=== PATIENT | female | born 1980 | race Caucasian/White ===

== ENCOUNTER 2018-02-13 19:47 | Emergency (ER) | payer MEDICAID, SELFPAY ==
[2018-02-13 19:49] VITALS: BP 130/88; PULSE 72; RESP 16; TEMP 36.1; O2SAT 100; BMI 31.1
[2018-02-13 20:00] VITALS: RESP 16
[2018-02-13 21:00] LABS: Bacteria 0 SEEN /hpf (None Seen); Mucous, Urine 0 SEEN /hpf (<or=2+)
--- NOTE | 2018-02-13 21:00 | ED.DCSUM_ITS ---
- ER Visit Summary Date of Service: 02/13/18 Chief Complaint: Left flank pain and urinary frequency and urgency History of Present Illness: The patient is a 37 F no significant past medical history other than anemia. She has had 2 prior C-sections. States for about 3 days she has had some urinary urgency and frequency. No dysuria. Did notice a small amount of blood when she wiped today. Last menstrual period was 01/04. Denies any fever. No abdominal pain. No vomiting. Physical Examination: Well-appearing female. No acute distress. Vital signs are stable afebrile. H EENT exam unremarkable. Neck nontender. Lungs clear to auscultation bilaterally. Heart regular rhythm no murmur. Abdomen soft, nontender, nondistended, normal bowel sounds no peritoneal signs. Patient is moving all 4 extremities. She is neurovascularly intact. Neurologically she is awake and alert. She has mild right CVA tenderness. No ecchymosis or bruising. Neurologic exam normal. Test Results: Urinalysis shows 150 occult blood on the macro. 25-50 whites on the micro 10-25 red blood cells on the micro epithelial cells no bacteria no nitrates. A urine culture will be sent. This will be treated as a UTI. Urine is negative. Emergency Department Course and Treatment: Patient does not want or need any medications at this time. Patient started on p.o. Keflex in the ER. On repeat exam she is doing well at 2220. We went over her urinalysis test results. Treatment Plan: Keflex 500 4 times daily for 10 days. Reason 1 treat the patient for this length of time is due to her flank pain that this could be early pyelonephritis. Disposition: Discharge Impression: Acute right flank pain secondary to acute pyelonephritis This note was generated with [employer] software. It may contain incorrect words, spelling, and punctuation that were not noted in review of the chart prior to signing ED Disposition - Plan for ED Patient: Chief Complaint: Flank Pain Referrals: Edgar Lawton MD [Primary Care Provider] -
[2018-02-13 21:05] LABS: Internal QC Validated? YES +Cl - CLEAR BKGD; Pregnancy, Urine Negative Negative
[2018-02-13 21:13] LABS: Color, Urine Yellow (Yellow); Glucose, Dipstick Normal (Normal); Ketone-Dipstick Negative (Negative); Leukocyte Esterase-Dipstick 100 /ul (Negative); Nitrite-Dipstick Negative (Negative); Occult Blood-Urine 150 /ul (Negative); Protein-Dipstick 15 mg/dl (Negative); Specific Gravity, Urine 1.015 (1.002-1.030); Urine Bilirubin Dipstick Negative (Negative); Urine Clarity Sl. Cloudy (Clear); Urine Urobilinogen Normal (Normal)
[2018-02-13 21:16] LABS: White Blood Cells 25-50 SEEN /hpf (0-5)
[2018-02-13 21:17] LABS: Red Blood Cells-Urine 10-25 SEEN /hpf (0-5); Squamous Epithelial Cells - UA 0-5 SEEN /hpf (5-10)
--- NOTE | 2018-02-13 22:34 | ED.DEP ---
ED Disposition - Plan for ED Patient: Disposition: Home or Assisted Living Chief Complaint: Flank Pain Instructions: ED Kidney Infec Female Prescriptions: Cephalexin [Keflex] 500 mg PO Q6 #40 cap Referrals: Edgar Lawton MD [Primary Care Provider] - Additional Instructions: Plenty of fluids and rest. Tylenol and/or Motrin for pain. Keflex the antibiotic 1 pill 4 times a day until gone. All up with your doctor as needed. Return if feeling a lot worse.
[2018-02-13] MEDS: Cephalexin 250 MG Capsule 500 MG PO (22:37)
[2018-02-13 22:39] VITALS: BP 116/85; PULSE 80; RESP 16; O2SAT 99
--- OUTSIDE RECORDS SUMMARY | 2018-04-11 10:14 | XMS RPT_ITS ---
:1980 Author Organization OHIP Care Team Providers Name Role Phone EAN LEÓN Attending Unavailable EAN LEÓN Referring Unavailable EAN LEÓN Attending Unavailable EAN LEÓN Referring Unavailable NETTE WARNER ([facility]) Referring Unavailable EAN LEÓN Attending Unavailable EAN LEÓN Referring Unavailable Nikkie Irwin Attending Unavailable Lisha Chapa Primary Care Unavailable Nikkie Irwin Attending Unavailable Lisha Chapa Primary Care Unavailable Nikkie Irwin Attending Unavailable Lisha Chapa Primary Care Unavailable Ortiz Burkett Attending Unavailable Ean León Primary Care Unavailable PROBLEMS PROBLEMS DATE TYPE CONDITION / CODE ATTENDING STATUS SOURCE 07/10/2017 Active Iron deficiency NA Active [facility] anemia, Main [place] unspecified / Repository D50.9(ICD-10) 06/09/2017 Active Other fatigue / NA Active [facility] R53.83(ICD-10) Main [place] Repository 06/09/2017 Active Anemia, NA Active [facility] unspecified / Main [place] D64.9(ICD-10) Repository PROCEDURES PROCEDURES No Procedure Records FoundRESULTS RESULTS DISCHARGE INSTRUCTION Observed: 02/13/2018 Status: F Source: [place] 11:04 PM [facility] REPOSITORY [facility] Medical Records Department [address] [place] [address] Discharge Instruction 02/13/18 2234 MR#: [id number] Acct: [id number] Name: NATASHA BLAKE Rep #: [id number] : 1980 37 From: Ortiz Burkett MD PCP: Ean León MD Status: DEP ER ED Disposition - Plan for ED Patient: Disposition: Home or Assisted Living Chief Complaint: Flank Pain Instructions: ED Kidney Infec Female Prescriptions: Cephalexin [Keflex] 500 mg PO Q6 #40 cap Referrals: Ean León MD [Primary Care Provider] - Additional Instructions: Plenty of fluids and rest. Tylenol and/or Motrin for pain. Keflex the antibiotic 1 pill 4 times a day until gone. All up with your doctor as needed. Return if feeling a lot worse. What to do if you have Problems For any increased pain, shortness of breath, bleeding, nausea or vomiting, chest pain, or any unexpected problems, contact your Primary Care Provider. Call [facility] ([phone]) or report to the closest Emergency Room. Call 911 if necessary. 02/13/18 2304 <Electronically signed by Ortiz Burkett MD> Date Ortiz Burkett MD Cosigner Signature (If Indicated): Date CC: Ean León MD EMERGENCY DEPARTMENT Observed: 02/13/2018 Status: F Source: [place] SUMMARY 11:04 PM [facility] REPOSITORY [facility] Medical Records Department [address] [place] [id number] Emergency Department Summary 02/13/182057 MR#: [id number] Acct: [id number] Name: NATASHA BLAKE Rep #: [id number] : 1980 37 From: Ortiz Burkett MD PCP: Ean León MD Status: DEP ER - ER Visit Summary Date of Service: 02/13/18 Chief Complaint: Left flank pain and urinary frequency and urgency History of Present Illness: The patient is a 37 F no significant past medical history other than anemia. She has had 2 prior C-sections. States for about 3 days she has had some urinary urgency and frequency. No dysuria. Did notice a small amount of blood when she wiped today. Last menstrual period was 01/04. Denies any fever. No abdominal pain. No vomiting. Physical Examination: Well-appearing female. No acute distress. Vital signs are stable afebrile. H EENT exam unremarkable. Neck nontender. Lungs clear to auscultation bilaterally. Heart regular rhythm no murmur. Abdomen soft, nontender, nondistended, normal bowel sounds no peritoneal signs. Patient is moving all 4 extremities. She is neurovascularly intact. Neurologically she is awake and alert. She has mild right CVA tenderness. No ecchymosis or bruising. Neurologic exam normal. Test Results: Urinalysis shows 150 occult blood on the macro. 25-50 whites on the micro 10-25 red blood cells on the micro epithelial cells no bacteria no nitrates. A urine culture will be sent. This will be treated as a UTI. Urine is negative. Emergency Department Course and Treatment: Patient does not want or need any medications at this time. Patient started on p.o. Keflex in the ER. On repeat exam she is doing well at 2220. We went over her urinalysis test results. Treatment Plan: Keflex 500 4 times daily for 10 days. Reason 1 treat the patient for this length of time is due to her flank pain that this could be early pyelonephritis. Disposition: Discharge Impression: Acute right flank pain secondary to acute pyelonephritis This note was generated with [employer] dictation software. It may contain incorrect words, spelling, and punctuation that were not noted in review of the chart prior to signing ED Disposition - Plan for ED Patient: Chief Complaint: Flank Pain Referrals: Ean León MD [Primary Care Provider] - What to do if you have Problems For any increased pain, shortness of breath, bleeding, nausea or vomiting, chest pain, or any unexpected problems, contact your Primary Care Provider. Call [employer] [facility] ([phone]) or report to the closest Emergency Room. Call 911 if necessary. 02/13/18 2037 <Electronically signed by Ortiz Burkett MD> Date Ortiz Burkett MD Cosigner Signature (If Indicated): Date CC: Ean eLón MD ,URINE Collected: 02/13/2018 Status: F Source: [place] 8:30 PM [facility] REPOSITORY Order Comment: Order Date: 02/13/18 TYPE CODE TESTS RESULT OUT OF REFERENCE UNITS RANGE LAB L400.8000 Negative Normal HCGUQUAL Negative Result Comment: Very dilute urine specimens, as indicated by a low specific gravity, may not contain representative phlebotomy services levels of hCG. If is still suspected, a first morning urine specimen should be collected 48 hours later and tested. Performed By: #### L400.7600 #### [facility] [place], [address] URINALYSIS, COMPLETE Collected: 02/13/2018 Status: F Source: [place] 8:30 PM [facility] REPOSITORY Order Comment: Order Date: 02/13/18 How was Urine Obtained? IMCU NURSE TO SPECIFY TYPE CODE TESTS RESULT OUT OF RANGE REFERENCE UNITS LAB L400.3000 Yellow COLOR Normal Yellow LAB L400.3050 Clear Normal CLARITY Sl. Cloudy LAB L400.3200 Normal mg/dl Normal GLUCOSE, UR Normal LAB L400.3300 Negative mg/dL Normal BILIRUBIN URINE Negative LAB L400.3400 Negative mg/dl Normal KETONE UR Negative LAB L400.3465 1.002-1.030 Normal SP.GR. DIPSTX 1.015 LAB L400.3550 5.0 - 8.0 pH UR Normal 7.0 LAB L400.3600 Negative mg/dl High PROT 15 DIPSTX LAB L400.3700 Normal mg/dl Normal UROBILI Normal LAB L400.3750 Negative Normal NITRITE UR Negative LAB L400.3780 Negative /ul High OCCULT BLOOD-UR 150 LAB L400.3800 Negative /ul High LEUK ESTERASE 100 LAB L400.4050 0-5 /hpf WBC Normal 25-50 SEEN LAB L400.4100 0-5 /hpf Normal RBC-UA 10-25 SEEN LAB L400.4150 5-10 /hpf SQUAM Normal EPI 0-5 SEEN LAB L400.4300 None Seen /hpf 0 Normal BACTERIA SEEN LAB L400.4350 <or=2+ /hpf 0 Normal MUCUS, URINE SEEN Performed By: #### L400.0001 #### [facility] [address] [place], [address] Observed: 02/13/2018 Status: F Source: [place] CULTURE, URINE 8:30 PM [facility] REPOSITORY Order Date: 02/13/18 Urine Culture Below infection level. Clinical correlation necessary, Possible skin contamination. ORGANISM 1: Streptococcus agalactiae (B) Shelby Count 1000-10,000 ORGANISM 2: Mixed Gram Positive Organisms Shelby Count 1000-10,000 Streptococcus agalactiae (B): REACTION Ampicillin $ <=0.25 S Inducable Clindamycin Resistan - Linezolid $$$$ <=2 S Vancomycin $ 0.5 S (NF) indicates non-formulary drug at [facility]. Approval by Infectious Disease Specialist required before non-formulary drugs may be ordered and/or dispensed. * CLSI guidelines does not recommend testing of cephalosporins. This interpretation is deduced from Beta-lactam/penicillin results. Performed By: #### M100.0650 #### [facility] [address] [place], [place], [address] CNCO Observed: 01/05/2018 Status: COMPLETED Source: [place] 12:00 AM [facility] REPOSITORY Letter Text [address] [place], [place] [address] January 05, 2018 Natasha Blake [address] [facility] [id number] RE: MISSED APPOINTMENT with Dr. León on Monday01/05/18 I am concerned that you missed your recent appointment and my office was not notified of the appointment being rescheduled. We request that you cancel 24 hours in advance.If cancellation is necessary after that,please call as soon as possible. As you know follow-up appointments are important so please call our Appointments Office at [phone] to reschedule. If there is anything we can do to assist you, please let us know. Sincerely, Dr. León's office CBC AND DIFFERENTIAL Collected: 10/06/2017 Status: F Source: [place] 3:35 PM [facility] REPOSITORY TYPE CODE TESTS RESULT OUT OF REFERENCE UNITS RANGE LAB WBC 3.70-11.00 k/uL WBC 5.18 LAB RBC 3.90-5.20 m/uL RBC 4.53 LAB HGB 11.5-15.5 g/dL Low Hemoglobin 10.5 LAB HCT 36.0-46.0 % Low Hematocrit 35.0 LAB MCV 80.0-100.0 fL Low MCV 77.3 LAB MCH 26.0-34.0 pG Low MCH 23.2 LAB MCHC 30.5-36.0 g/dL Low MCHC 30.0 LAB RDWCV 11.5-15.0 % RDW-CV High 17.8 LAB PLTCT 150-400 k/uL Platelet Count 361 LAB MPV 9.0-12.7 fL MPV 9.9 LAB ANEUT % Neut% 54.4 LAB AANEUT 1.45-7.50 k/uL Abs Neut 2.80 LAB ALYMP % Lymph% 31.3 LAB AALYMP 1.00-4.00 k/uL Abs Lymph 1.62 LAB AMONO % Finney% 10.6 LAB AAMONO <0.87 k/uL Abs Finney 0.55 LAB AEOS % Eosin% 2.9 LAB AAEOS <0.46 k/uL Abs Eosin 0.15 LAB ABASO % Baso% 0.8 LAB AABASO <0.11 k/uL Abs Baso 0.04 LAB AUNRBC 0 /100 WBC NRBCs 0.0 LAB ABNRBC <0.01 k/uL Absolute nRBC <0.01 LAB DTYP DTYPE Auto Diff Performed By: #### CBCDIF, IRON, FERR #### [facility] [address] [place], [place] [address] IRON AND TIBC Collected: 10/06/2017 Status: F Source: [place] 3:35 PM [facility] REPOSITORY TYPE CODE TESTS RESULT OUT OF REFERENCE UNITS RANGE LAB IRN 41-186 ug/dL Low Iron 15 LAB TIBC 232-386 ug/dL TIBC High 431 LAB SAT 15-57 % Low Transferrin Saturatn 3 Performed By: #### CBCDIF, IRON, FERR #### [facility] [address] [place] [address] FERRITIN Collected: 10/06/2017 Status: F Source: [place] 3:35 PM [facility] [place] REPOSITORY TYPE CODE TESTS RESULT OUT OF REFERENCE UNITS RANGE LAB FERR 14.7-205.1 ng/mL Low Ferritin 14.0 Performed By: #### CBCDIF, IRON, FERR #### [facility] [address] [place], [place] [address] PROGRESS Observed: 10/06/2017 Status: COMPLETED Source: [place] 3:07 PM [facility] [place] REPOSITORY HNO ID: [id number] Author: Ean León Service: (none) Author Type: Physician Type: Progress Notes Filed: 10/06/2017 3:29 PM Note Text: Chief Complaint Patient presents with: Recheck HPI Natasha Blake is a 37 year old female who presents here today for a follow up. Here today with her daughter for a follow up visit. Depression/Anxiety - Overall feels that she is doing better and has d/c her medication. Did have a panic attack in the store due to some weird siobhan getting to close to her and she freaked out on him. She had her daughter with her and hugged which made her feel better. Depression she seems to get a little weepy during her period, but with her daughter and hugging her she does better. D/c Zoloft due to becoming worried about SE and hearing friends have bad reactions to it. VILLA - States that they are not lasting as long, but now having migraines that she is experiencing N/V with. Using Advil 1-2 tablets and goes to sleep. With the use of Advil symptoms usually go away in about 1.5 hours. Leg pain - Left leg pain the last two weeks. Stands 10 hours a day, 4 days a week at work. Pain shoots up her leg and behind her knee. Pain rated a 4/10 and is intermittent. Anemia - Has not taken due to having issues with her current medication. When she previously took her Ferrous Sulfate twice daily, but recent refill the pills are bigger and it causes VILLA, constipation and possible leg pain (unsure if the medication contributes). Past medical history, appointments, medications, allergies reviewed. Previous Medical History PAST MEDICAL HISTORY Diagnosis Date - VILLA (headache) Previous Surgical History No past surgical history on file. Family History No family history on file. Patient Allergies ALLERGIES Allergen Reactions - Seasonal Allergies Other: See Comments Itchy, watery eyes, sneezing Current Medications Current Outpatient Prescriptions on File Prior to Visit: ferrous sulfate 325 mg (65 mg iron) tablet Take 1 tablet by mouth twice daily with meals. albuterol HFA (VENTOLIN HFA) 90 mcg/actuation inhaler Inhale 2 Puffs as instructed every 4 hours as needed for Wheezing/Shortness of Breath. No current facility-administered medications on file prior to visit. Social History Social History Marital status: Single Spouse name: Years of education: Number of children: Social History Main Topics Smoking status: Never Smoker Smokeless tobacco: Never Used EXAM: BP 106/74 (BP Site: Left Arm, BP Position: Sitting, BP Cuff Size: Regular Adult) Pulse 68 Resp 16 Wt 87.5 kg (192 lb 12.8 oz) General Appearance: Well appearing, alert, in no acute distress, well-hydrated, well nourished.. Neck: Pain in the back of the neck. Lungs: Lungs clear to auscultation. No wheezing, rhonchi, rales. Heart: RRR without murmur, gallop, or rubs. No ectopy. Extremities: Pain along the bilateral side of the knee, bilaterally. Possibly tendon related becoming irritated. Health Maintenance List DTAP,TDAP,TD(1 - Tdap) due on 1997 PAP EVERY 5 YEARS due on 2008 HPV EVERY 5 YEARS due on 2008 INFLUENZA(1) due on 11/18/2017 Data reviewed None ASSESSMENT/PLAN: 1. Iron deficiency anemia, unspecified iron deficiency anemia type - ICD9: 280.9, ICD10: D50.9 (primary diagnosis) - complete labs today - FERROUS SULFATE 325 MG (65 MG IRON) TABLET,DELAYED RELEASE 2. Menorrhagia with regular cycle - ICD9: 626.2, ICD10: N92.0 - labs today 3. Headache, unspecified headache type - ICD9: 784.0, ICD10: R51 - Monitor, use Advil 4. Left leg pain - ICD9: 729.5, ICD10: M79.605 - Warm compresses, stretching Call with lab results; 3 mo f/u Ean León MD The documentation for this note was completed by Sonia Maria Ma acting as scribe for Ean León MD. October 06, 2017 3:07 PM. CNOV Observed: 10/06/2017 Status: COMPLETED Source: [place] 3:00 PM [facility] REPOSITORY Office Visit (FAMPWS) NATASHA BLAKE ([id number]) 1980 F Date Time Provider Department 10/06/17 3:00 PM [facility] During your visit today, we recorded the following information about you: Pulse Respiration Blood pressure Weight 68/minute 16/minute 106/74 87.5 kg Ean León MD 10/06/2017 3:29 PM Signed Chief Complaint Patient presents with: Recheck HPI Natasha Idania Hayden is a 37 year old female who presents here today for a follow up. Here today with her daughter for a follow up visit. Depression/Anxiety - Overall feels that she is doing better and has d/c her medication. Did have a panic attack in the store due to some weird siobhan getting to close to her and she freaked out on him. She had her daughter with her and hugged which made her feel better. Depression she seems to get a little weepy during her period, but with her daughter and hugging her she does better. D/c Zoloft due to becoming worried about SE and hearing friends have bad reactions to it. VILLA - States that they are not lasting as long, but now having migraines that she is experiencing N/V with. Using Advil 1-2 tablets and goes to sleep. With the use of Advil symptoms usually go away in about 1.5 hours. Leg pain - Left leg pain the last two weeks. Stands 10 hours a day, 4 days a week at work. Pain shoots up her leg and behind her knee. Pain rated a 4/10 and is intermittent. Anemia - Has not taken due to having issues with her current medication. When she previously took her Ferrous Sulfate twice daily, but recent refill the pills are bigger and it causes VILLA, constipation and possible leg pain (unsure if the medication contributes). Past medical history, appointments, medications, allergies reviewed. Previous Medical History PAST MEDICAL HISTORY Diagnosis Date - VILLA (headache) Previous Surgical History No past surgical history on file. Family History No family history on file. Patient Allergies ALLERGIES Allergen Reactions - Seasonal Allergies Other: See Comments Itchy, watery eyes, sneezing Current Medications Current Outpatient Prescriptions on File Prior to Visit: ferrous sulfate 325 mg (65 mg iron) tablet Take 1 tablet by mouth twice daily with meals. albuterol HFA (VENTOLIN HFA) 90 mcg/actuation inhaler Inhale 2 Puffs as instructed every 4 hours as needed for Wheezing/Shortness of Breath. No current facility-administered medications on file prior to visit. Social History Social History Marital status: Single Spouse name: Years of education: Number of children: Social History Main Topics Smoking status: Never Smoker Smokeless tobacco: Never Used EXAM: BP 106/74 (BP Site: Left Arm, BP Position: Sitting, BP Cuff Size: Regular Adult) Pulse 68 Resp 16 Wt 87.5 kg (192 lb 12.8 oz) General Appearance: Well appearing, alert, in no acute distress, well-hydrated, well nourished.. Neck: Pain in the back of the neck. Lungs: Lungs clear to auscultation. No wheezing, rhonchi, rales. Heart: RRR without murmur, gallop, or rubs. No ectopy. Extremities: Pain along the bilateral side of the knee, bilaterally. Possibly tendon related becoming irritated. Health Maintenance List DTAP,TDAP,TD(1 - Tdap) due on 1997 PAP EVERY 5 YEARS due on 2008 HPV EVERY 5 YEARS due on 2008 INFLUENZA(1) due on 11/18/2017 Data reviewed None ASSESSMENT/PLAN: 1. Iron deficiency anemia, unspecified iron deficiency anemia type - ICD9: 280.9, ICD10: D50.9 (primary diagnosis) - complete labs today - FERROUS SULFATE 325 MG (65 MG IRON) TABLET,DELAYED RELEASE 2. Menorrhagia with regular cycle - ICD9: 626.2, ICD10: N92.0 - labs today 3. Headache, unspecified headache type - ICD9: 784.0, ICD10: R51 - Monitor, use Advil 4. Left leg pain - ICD9: 729.5, ICD10: M79.605 - Warm compresses, stretching Call with lab results; 3 mo f/u Ean León MD The documentation for this note was completed by Sonia Maria Ma acting as scribe for Ean León MD. October 06, 2017 3:07 PM. Referring Provider: SELF [[id number]] Allergies As of Date: 10/06/2017 Noted Allergy Reaction SEASONAL ALLERGIES 06/09/2017 14 - Other: See Comments Comments: Itchy, watery eyes, sneezing Date Reviewed: 10/06/2017 Reviewed by: Sonia Maria Ma - Fully Assessed Reason for Visit: Recheck [92] Primary Visit Diagnosis:Iron deficiency anemia, unspecified iron deficiency anemia type [D50.9] Other Visit Diagnoses:Menorrhagia with regular cycle [N92.0] Headache, unspecified headache type [R51] Left leg pain [M79.605] Order(s):ferrous sulfate 325 mg (65 mg iron) EC tabletTake 1 tablet by mouth twice daily.Disp: 60 tabletRfl: 2 CBC + DIFF [SQCBCDIF] Order #: [id number] FUTURE IRON + TIBC [SQIRON] Order #: [id number] FUTURE FERRITIN BLD [SQFERR] Order #: [id number] FUTURE Prescriptions as of 10/06/2017 Sig: CETIRIZINE 10 MG TABLET Take 1 tablet by mouth once d* FERROUS SULFATE 325 MG (65 MG* Take 1 tablet by mouth twice * ALBUTEROL SULFATE HFA 90 MCG/* Inhale 2 Puffs as instructed * FERROUS SULFATE 325 MG (65 MG* Take 1 tablet by mouth twice * Problem List As Of Date: 10/06/2017 (None) Prescriptions ordered this encounter Disp Refills Start End FERROUS SULFATE 325 MG (65 MG IRON) * 60 t* 2 10/06/2017 Cmt: Brand name - smaller tablets. Route: ORAL Sig: Take 1 tablet by mouth twice daily. Medications Discontinued During This Encounter sertraline (ZOLOFT) 25 mg tablet 30 t* 2 07/10/2017 10/06/2017 Route: ORAL Sig: Take 1 tablet by mouth once daily. Disc: Discontinued by Patient cefdinir (OMNICEF) 300 mg capsule 06/29/2017 10/06/2017 Class: Historical Med Route: ORAL Sig: Take 300 mg by mouth once daily. Disc: Course of therapy completed Disposition: Return in about 3 months (around 01/06/2018). Follow-up and Disposition History Recorded Encounter Status:Closed by EAN LEÓN MD on 10/06/17 CBC AND DIFFERENTIAL Collected: 07/10/2017 Status: F Source: [place] 3:13 PM [facility] [place] REPOSITORY TYPE CODE TESTS RESULT OUT OF REFERENCE UNITS RANGE LAB WBC 3.70-11.00 k/uL WBC 5.95 LAB RBC 3.90-5.20 m/uL RBC 4.62 LAB HGB 11.5-15.5 g/dL Low Hemoglobin 8.7 LAB HCT 36.0-46.0 % Low Hematocrit 31.0 LAB MCV 80.0-100.0 fL Low MCV 67.1 LAB MCH 26.0-34.0 pG Low MCH 18.8 LAB MCHC 30.5-36.0 g/dL Low MCHC 28.1 LAB RDWCV 11.5-15.0 % RDW-CV High 18.6 LAB PLTCT 150-400 k/uL Platelet High Count 489 LAB MPV 9.0-12.7 fL MPV 10.4 LAB ANEUT % Neut% 57.1 LAB AANEUT 1.45-7.50 k/uL Abs Neut 3.39 LAB ALYMP % Lymph% 28.9 LAB AALYMP 1.00-4.00 k/uL Abs Lymph 1.72 LAB AMONO % Finney% 10.3 LAB AAMONO <0.87 k/uL Abs Finney 0.61 LAB AEOS % Eosin% 3.0 LAB AAEOS <0.46 k/uL Abs Eosin 0.18 LAB ABASO % Baso% 0.7 LAB AABASO <0.11 k/uL Abs Baso 0.04 LAB AUNRBC 0 /100 WBC NRBCs 0.0 LAB ABNRBC <0.01 k/uL Absolute nRBC <0.01 LAB DTYP DTYPE Auto Diff Performed By: #### CBCDIF, IRON, FERR #### [facility] [address] [place], [place] [id number] IRON AND TIBC Collected: 07/10/2017 Status: F Source: [place] 3:13 PM [facility] REPOSITORY TYPE CODE TESTS RESULT OUT OF REFERENCE UNITS RANGE LAB IRN 41-186 ug/dL Low Iron 21 LAB TIBC 232-386 ug/dL TIBC High 446 LAB SAT 15-57 % Low Transferrin Saturatn 5 Performed By: #### CBCDIF, IRON, FERR #### [facility] [address] [place], [place] [address] FERRITIN Collected: 07/10/2017 Status: F Source: [place] 3:13 PM [facility] REPOSITORY TYPE CODE TESTS RESULT OUT OF REFERENCE UNITS RANGE LAB FERR 14.7-205.1 ng/mL Low Ferritin 7.8 Performed By: #### CBCDIF, IRON, FERR #### [facility] [address] [place], [place] [address] CNOV Observed: 07/10/2017 Status: COMPLETED Source: [place] 2:40 PM [facility] REPOSITORY Office Visit (FAMPWS) NATASHA BLAKE ([id number]) 1980 F Date Time Provider Department 07/10/17 2:40 PM EAN LEÓN FAMPWS During your visit today, we recorded the following information about you: Pulse Respiration Blood pressure Weight 74/minute 16/minute 122/70 90.9 kg Ean León MD 07/10/2017 5:08 PM Signed Chief Complaint Patient presents with: F/U 1 month: labs and CT HPI Natasha Blake is a 37 year old female who presents here today for 1 month follow up on labs and CT scan. CT of brain was denied by insurance. Appeal letter was faxed, awaiting response. Pt states she is still having the sharp pain that go form neck into the head, dizziness. notices the dizziness more when active, happens a lot a work and she has to sit down so she does not fall over. The dizziness does cause some nausea. Pt had blood work done; hgb was 8.7. Started on iron pills, but dropped them on the floor so has not taken for a while. She stated her menstrual cycles are heaviest on 2nd and 3rd day, this most recent cycle lasted 9 days. Was seen for sinus infection at walk in clinic, was treated on 06/29/17 with Omnicef 300 mg once daily. She finished this yesterday, feels a little better. She still seems to be getting headaches. Pt has not used the Pippa D that was recommended, pharmacies did not have generic available, insurance will not pay for name brand. Toe: left great toe pain off and on, usually a sharp pain while walking. Past medical history, appointments, medications, allergies reviewed. Previous Medical History No past medical history on file. Previous Surgical History No past surgical history on file. Family History No family history on file. Patient Allergies ALLERGIES Allergen Reactions - Seasonal Allergies Other: See Comments Itchy, watery eyes, sneezing Current Medications Current Outpatient Prescriptions on File Prior to Visit: ferrous sulfate 325 mg (65 mg iron) tablet Take 1 tablet by mouth twice daily with meals. albuterol HFA (VENTOLIN HFA) 90 mcg/actuation inhaler Inhale 2 Puffs as instructed every 4 hours as needed for Wheezing/Shortness of Breath. No current facility-administered medications on file prior to visit. Social History Social History Marital status: Single Spouse name: Years of education: Number of children: Social History Main Topics Smoking status: Never Smoker Smokeless status: Never Used EXAM: BP 122/70 Pulse 74 Resp 16 Wt 90.9 kg (200 lb 6.4 oz) General Appearance: Well appearing, alert, in no acute distress, well-hydrated, well nourished.. Ears: External ears normal, canals clear. Oropharynx: Lips, mucosa, and tongue normal, teeth and gums normal, oropharynx normal. Neck: Supple, no adenopathy; thyroid symmetric, normal size, no bruits. Lungs: Lungs clear to auscultation. No wheezing, rhonchi, rales. Heart: RRR without murmur, gallop, or rubs. No ectopy. Health Maintenance List TETANUS due on 1989 PAP EVERY 5 YEARS due on 2008 HPV EVERY 5 YEARS due on 2008 INFLUENZA(Season Ended) due on 11/18/2017 Data reviewed Appointment on 06/09/2017 Protein, Total Value: 7.2(g/dL) Date: 06/09/2017 Albumin Value: 4.3(g/dL) Date: 06/09/2017 Calcium Value: 10.0(mg/dL) Date: 06/09/2017 Bilirubin, Total Value: 0.2(mg/dL) Date: 06/09/2017 Alkaline Phosphatase Value: 69(U/L) Date: 06/09/2017 AST Value: 22(U/L) Date: 06/09/2017 Glucose Value: 92(mg/dL) Date: 06/09/2017 BUN Value: 8(mg/dL) Date: 06/09/2017 Creatinine Value: 0.80(mg/dL) Date: 06/09/2017 Sodium Value: 137(mmol/L) Date: 06/09/2017 Potassium Value: 4.0(mmol/L) Date: 06/09/2017 Chloride Value: 102(mmol/L) Date: 06/09/2017 CO2 Value: 25(mmol/L) Date: 06/09/2017 Anion Gap Value: 10(mmol/L) Date: 06/09/2017 ALT Value: 11(U/L) Date: 06/09/2017 eGFR- Value: ANDgt;60 Date: 06/09/2017 eGFR-All Other Races Value: ANDgt;60(.) Date: 06/09/2017 TSH Value: 2.100(uU/mL) Date: 06/09/2017 WBC Value: 4.14(k/uL) Date: 06/09/2017 RBC Value: 4.67(m/uL) Date: 06/09/2017 Hemoglobin Value: 8.7(g/dL)* Date: 06/09/2017 Hematocrit Value: 31.1(%)* Date: 06/09/2017 MCV Value: 66.6(fL)* Date: 06/09/2017 MCH Value: 18.6(pG)* Date: 06/09/2017 MCHC Value: 28.0(g/dL)* Date: 06/09/2017 RDW-CV Value: 18.4(%)* Date: 06/09/2017 Platelet Count Value: 475(k/uL)* Date: 06/09/2017 MPV Value: 10.8(fL) Date: 06/09/2017 Absolute nRBC Value: ANDlt;0.01(k/uL) Date: 06/09/2017 Iron Value: 13(ug/dL)* Date: 06/09/2017 TIBC Value: 472(ug/dL)* Date: 06/09/2017 Transferrin Saturation Value: 3(%)* Date: 06/09/2017 ASSESSMENT/PLAN: 1. Iron deficiency anemia, unspecified iron deficiency anemia type - ICD9: 280.9, ICD10: D50.9 (primary diagnosis) Go back on iron; check labs today - FERROUS SULFATE 325 MG (65 MG IRON) TABLET 2. Depression, unspecified depression type - ICD9: 311, ICD10: F32.9 Start zoloft 25 mg daily - reports she is sensitive to medication 3. Acute sinusitis, recurrence not specified, unspecified location - ICD9: 461.9, ICD10: J01.90 [place] 4. Headache, unspecified headache type - ICD9: 784.0, ICD10: R51 Await determination of CT Follow up in 1 month Ean León MD Referring Provider: EAN LEÓN [[id number]] Allergies As of Date: 07/10/2017 Noted Allergy Reaction SEASONAL ALLERGIES 06/09/2017 14 - Other: See Comments Comments: Itchy, watery eyes, sneezing Date Reviewed: 07/10/2017 Reviewed by: Linda Jin Ma - Fully Assessed Reason for Visit: F/U 1 month [7695] Cmt: labs and CT Primary Visit Diagnosis:Iron deficiency anemia, unspecified iron deficiency anemia type [D50.9] Other Visit Diagnoses:Depression, unspecified depression type [F32.9] Acute sinusitis, recurrence not specified, unspecified location [J01.90] Headache, unspecified headache type [R51] Order(s):ferrous sulfate 325 mg (65 mg iron) tabletTake 1 tablet by mouth twice daily with meals.Disp: 60 tabletRfl: 1 sertraline (ZOLOFT) 25 mg tabletTake 1 tablet by mouth once daily.Disp: 30 tabletRfl: 2 azithromycin (ZITHROMAX Z-AMILCAR) 250 mg tabletTake 2 tablets day one, then, 1 tablet daily until gone.Disp: 1 PackageRfl: 0 Prescriptions as of 07/10/2017 Sig: CEFDINIR 300 MG CAPSULE Take 300 mg by mouth once shelly* FERROUS SULFATE 325 MG (65 MG* Take 1 tablet by mouth twice * ALBUTEROL SULFATE HFA 90 MCG/* Inhale 2 Puffs as instructed * SERTRALINE 25 MG TABLET Take 1 tablet by mouth once d* AZITHROMYCIN 250 MG TABLET Take 2 tablets day one, then,* Medication notes this encounter CEFDINIR 300 MG CAPSULE >> Linda Jin Ma 07/10/2017 2:24 PM >> LINDA JIN MA Jul 10, 2017 2:24 PM Received from: External Pharmacy Problem List As Of Date: 07/10/2017 (None) Prescriptions ordered this encounter Disp Refills Start End FERROUS SULFATE 325 MG (65 MG IRON) * 60 t* 1 07/10/2017 Route: ORAL Sig: Take 1 tablet by mouth twice daily with meals. SERTRALINE 25 MG TABLET 30 t* 2 07/10/2017 10/08/2017 Route: ORAL Sig: Take 1 tablet by mouth once daily. AZITHROMYCIN 250 MG TABLET 1 Pa* 0 07/10/2017 07/15/2017 Sig: Take 2 tablets day one, then, 1 tablet daily until gone. Medications Discontinued During This Encounter ferrous sulfate 325 mg (65 mg iron) * 60 t* 1 06/12/2017 07/10/2017 Route: ORAL Sig: Take 1 tablet by mouth twice daily with meals. Disc: Reason for discontinue is not on file. Disposition: Return in about 1 month (around 08/09/2017). Follow-up and Disposition History Recorded Encounter Status:Closed by EAN LEÓN MD on 07/10/17 PROGRESS Observed: 07/10/2017 Status: COMPLETED Source: [place] 2:20 PM [facility] [place] REPOSITORY O ID: [id number] Author: Ean León Service: (none) Author Type: Physician Type: Progress Notes Filed: 07/10/2017 5:08 PM Note Text: Chief Complaint Patient presents with: F/U 1 month: labs and CT HPI Natasha Blake is a 37 year old female who presents here today for 1 month follow up on labs and CT scan. CT of brain was denied by insurance. Appeal letter was faxed, awaiting response. Pt states she is still having the sharp pain that go form neck into the head, dizziness. notices the dizziness more when active, happens a lot a work and she has to sit down so she does not fall over. The dizziness does cause some nausea. Pt had blood work done; hgb was 8.7. Started on iron pills, but dropped them on the floor so has not taken for a while. She stated her menstrual cycles are heaviest on 2nd and 3rd day, this most recent cycle lasted 9 days. Was seen for sinus infection at walk in clinic, was treated on 06/29/17 with Omnicef 300 mg once daily. She finished this yesterday, feels a little better. She still seems to be getting headaches. Pt has not used the Pippa D that was recommended, pharmacies did not have generic available, insurance will not pay for name brand. Toe: left great toe pain off and on, usually a sharp pain while walking. Past medical history, appointments, medications, allergies reviewed. Previous Medical History No past medical history on file. Previous Surgical History No past surgical history on file. Family History No family history on file. Patient Allergies ALLERGIES Allergen Reactions - Seasonal Allergies Other: See Comments Itchy, watery eyes, sneezing Current Medications Current Outpatient Prescriptions on File Prior to Visit: ferrous sulfate 325 mg (65 mg iron) tablet Take 1 tablet by mouth twice daily with meals. albuterol HFA (VENTOLIN HFA) 90 mcg/actuation inhaler Inhale 2 Puffs as instructed every 4 hours as needed for Wheezing/Shortness of Breath. No current facility-administered medications on file prior to visit. Social History Social History Marital status: Single Spouse name: Years of education: Number of children: Social History Main Topics Smoking status: Never Smoker Smokeless status: Never Used EXAM: BP 122/70 Pulse 74 Resp 16 Wt 90.9 kg (200 lb 6.4 oz) General Appearance: Well appearing, alert, in no acute distress, well-hydrated, well nourished.. Ears: External ears normal, canals clear. Oropharynx: Lips, mucosa, and tongue normal, teeth and gums normal, oropharynx normal. Neck: Supple, no adenopathy; thyroid symmetric, normal size, no bruits. Lungs: Lungs clear to auscultation. No wheezing, rhonchi, rales. Heart: RRR without murmur, gallop, or rubs. No ectopy. Health Maintenance List TETANUS due on 1989 PAP EVERY 5 YEARS due on 2008 HPV EVERY 5 YEARS due on 2008 INFLUENZA(Season Ended) due on 11/18/2017 Data reviewed Appointment on 06/09/2017 Protein, Total Value: 7.2(g/dL) Date: 06/09/2017 Albumin Value: 4.3(g/dL) Date: 06/09/2017 Calcium Value: 10.0(mg/dL) Date: 06/09/2017 Bilirubin, Total Value: 0.2(mg/dL) Date: 06/09/2017 Alkaline Phosphatase Value: 69(U/L) Date: 06/09/2017 AST Value: 22(U/L) Date: 06/09/2017 Glucose Value: 92(mg/dL) Date: 06/09/2017 BUN Value: 8(mg/dL) Date: 06/09/2017 Creatinine Value: 0.80(mg/dL) Date: 06/09/2017 Sodium Value: 137(mmol/L) Date: 06/09/2017 Potassium Value: 4.0(mmol/L) Date: 06/09/2017 Chloride Value: 102(mmol/L) Date: 06/09/2017 CO2 Value: 25(mmol/L) Date: 06/09/2017 Anion Gap Value: 10(mmol/L) Date: 06/09/2017 ALT Value: 11(U/L) Date: 06/09/2017 eGFR- Value: >60 Date: 06/09/2017 eGFR-All Other Races Value: >60(.) Date: 06/09/2017 TSH Value: 2.100(uU/mL) Date: 06/09/2017 WBC Value: 4.14(k/uL) Date: 06/09/2017 RBC Value: 4.67(m/uL) Date: 06/09/2017 Hemoglobin Value: 8.7(g/dL)* Date: 06/09/2017 Hematocrit Value: 31.1(%)* Date: 06/09/2017 MCV Value: 66.6(fL)* Date: 06/09/2017 MCH Value: 18.6(pG)* Date: 06/09/2017 MCHC Value: 28.0(g/dL)* Date: 06/09/2017 RDW-CV Value: 18.4(%)* Date: 06/09/2017 Platelet Count Value: 475(k/uL)* Date: 06/09/2017 MPV Value: 10.8(fL) Date: 06/09/2017 Absolute nRBC Value: <0.01(k/uL) Date: 06/09/2017 Iron Value: 13(ug/dL)* Date: 06/09/2017 TIBC Value: 472(ug/dL)* Date: 06/09/2017 Transferrin Saturation Value: 3(%)* Date: 06/09/2017 ASSESSMENT/PLAN: 1. Iron deficiency anemia, unspecified iron deficiency anemia type - ICD9: 280.9, ICD10: D50.9 (primary diagnosis) Go back on iron; check labs today - FERROUS SULFATE 325 MG (65 MG IRON) TABLET 2. Depression, unspecified depression type - ICD9: 311, ICD10: F32.9 Start zoloft 25 mg daily - reports she is sensitive to medication 3. Acute sinusitis, recurrence not specified, unspecified location - ICD9: 461.9, ICD10: J01.90 Zpak 4. Headache, unspecified headache type - ICD9: 784.0, ICD10: R51 A[address] determination of CT Follow up in 1 month Ean León MD CBC Collected: 06/09/2017 Status: F Source: [place] 10:26 AM [facility] REPOSITORY TYPE CODE TESTS RESULT OUT OF REFERENCE UNITS RANGE LAB WBC 3.70-11.00 k/uL WBC 4.14 LAB RBC 3.90-5.20 m/uL RBC 4.67 LAB HGB 11.5-15.5 g/dL Low Hemoglobin 8.7 LAB HCT 36.0-46.0 % Low Hematocrit 31.1 LAB MCV 80.0-100.0 fL Low MCV 66.6 LAB MCH 26.0-34.0 pG Low MCH 18.6 LAB MCHC 30.5-36.0 g/dL Low MCHC 28.0 LAB RDWCV 11.5-15.0 % RDW-CV High 18.4 LAB PLTCT 150-400 k/uL Platelet High Count 475 LAB MPV 9.0-12.7 fL MPV 10.8 LAB ABSNUC <0.01 k/uL Absolute nRBC <0.01 Performed By: #### CBC, CMP, IRON, TSH #### [facility] [address] [place], [place] [address] COMP METABOLIC PANEL Collected: 06/09/2017 Status: F Source: [place] 10:26 AM [facility] REPOSITORY TYPE CODE TESTS RESULT OUT OF REFERENCE UNITS RANGE LAB TP 6.3-8.0 g/dL Protein, Total 7.2 LAB ALB 3.9-4.9 g/dL Albumin 4.3 LAB CA 8.5-10.2 mg/dL Calcium, Total 10.0 LAB TBIL 0.2-1.3 mg/dL Bilirubin, Total 0.2 LAB ALKP 32-117 U/L Alkaline Phosphatase 69 LAB AST 13-35 U/L AST 22 LAB GLU 74-99 mg/dL Glucose 92 Result Comment: The [place] [employer] Association (ADA) provides guidance for cutoff values for fasting glucose and random glucose. The ADA defines fasting as no caloric intake for at least 8 hours. Fas ting plasma glucose results between 100 to 125 mg/dL indicate increased risk for diabetes (prediabetes). Fasting plasma glucose results greater than or equal to 126 mg/dL meet the criteria for diagnosis of diabetes. In the absence of unequivocal hyperglycemia, results should be confirmed by repeat testing. In a patient with classic symptoms of hyperglycemia or hyperglycemic crisis, random plasma glucose results greater than or equal to 200 mg/dL meet the criteria for diagnosis of diabetes. Reference: Standards of Medical Care in Diabetes 2016, [place] [employer] Association. Diabetes Care. 2016.39(Suppl 1). LAB BUN 7-21 mg/dL BUN 8 LAB CRET 0.58-0.96 mg/dL Creatinine 0.80 LAB NA 136-144 mmol/L Sodium 137 LAB K 3.7-5.1 mmol/L Potassium 4.0 LAB CL 97-105 mmol/L Chloride 102 LAB CO2 22-30 mmol/L CO2 25 LAB AGAP 9-18 mmol/L Anion Gap 10 LAB ALT 7-38 U/L ALT 11 LAB GFRAA eGFR- Amer. >60 LAB GFRNAA . eGFR-All Other Races >60 Result Comment: eGFR (Estimated GFR) Units of measure: mL/min/1.73 meters squared eGFR is derived from the reexpressed MDRD Study equation using the following parameters: serum creatinine, age, gender and race. The creatinine assay has been calibrated to be traceable to IDMS. An eGFR <60 mL/min/1.73m2 for >3 months is consistent with chronic kidney disease. Refer to KDOQI guidelines for clinical interpretation. In patients with unstable renal function, e.g. those with acute kidney injury, the eGFR may not accurately reflect actual GFR. Performed By: #### CBC, CMP, IRON, TSH #### [facility] [address] [place], [place] [address] IRON AND TIBC Collected: 06/09/2017 Status: F Source: [place] 10:26 AM [facility] REPOSITORY TYPE CODE TESTS RESULT OUT OF REFERENCE UNITS RANGE LAB IRN 41-186 ug/dL Low Iron 13 LAB TIBC 232-386 ug/dL TIBC High 472 LAB SAT 15-57 % Low Transferrin Saturatn 3 Performed By: #### CBC, CMP, IRON, TSH #### [facility] [address] [place], [place] [address] TSH Collected: 06/09/2017 Status: F Source: [place] 10:26 AM [facility] REPOSITORY TYPE CODE TESTS RESULT OUT OF RANGE REFERENCE UNITS LAB TSH 0.400-5.500 uU/mL TSH 2.100 Result Comment: If the patient is , TSH reference range varies by gestational period: First Trimester 0.100-2.500 uU/mL Second Trimester 0.200-3.000 uU/mL Third Trimester 0.300-3.000 uU/mL References: 1. Blackburn L, Lacy M, Desmond EK, et al. Management of Thyroid Dysfunction during and : An Endocrine Society Clinical Practice Guideline. J Clin Endocrinol Metab, 2012:97:0564-4104. 2. Carlos COATS. Overview of thyroid disease in . UpToDate. 2016. Accessed on September 04, 2015. Performed By: #### CBC, CMP, IRON, TSH #### [facility] [address] [place], [place] [id number] PROGRESS Observed: 06/09/2017 Status: COMPLETED Source: [place] 9:54 AM [facility] REPOSITORY HNO ID: [id number] Author: Ean Barron [facility] Service: (none) Author Type: Physician Type: Progress Notes Filed: 06/09/2017 10:35 AM Note Text: Chief Complaint Patient presents with: Headache: patient has been getting headaches, neck pain and vision changes for several months now. Increase in headaches. HPI Natasha Blake is a 37 year old female who presents here today for evaluation of multiple symptoms. Increasing headaches for several months. Gets pain in her neck, then sharp pain in forehead, behind right eye typically, then has blurred vision, dizziness. Lasts up to 30 minutes. Getting more frequent and worse. Has also had increased anxiety, some panic attacks. Some depression; had break up of relationship last year, now in new relationship. No meds for this, has not been treated in the past. Family history of anxiety and depression. She was seen in ER once; told iron level was los; no other evaluation done. Has a history of anemia in the past. Single; three children, works at [employer]. Past medical history, appointments, medications, allergies reviewed. Previous Medical History No past medical history on file. Previous Surgical History No past surgical history on file. Family History No family history on file. Patient Allergies ALLERGIES Allergen Reactions - Seasonal Allergies Other: See Comments Itchy, watery eyes, sneezing Current Medications No current outpatient prescriptions on file prior to visit. No current facility-administered medications on file prior to visit. Social History Social History Marital status: Single Spouse name: Years of education: Number of children: Social History Main Topics Smoking status: Never Smoker Smokeless status: Never Used EXAM: BP 110/68 (BP Site: Right Arm, BP Position: Sitting, BP Cuff Size: Regular Adult) Pulse 76 Resp 14 Wt 89.8 kg (198 lb) LMP 05/29/2017 (Exact Date) General Appearance: Well appearing, alert, in no acute distress, well-hydrated, well nourished.. Eyes: Anicteric sclera. Pupils are equally round and reactive to light. Extraocular movements are intact. . Ears: External ears normal, canals clear. Oropharynx: Lips, mucosa, and tongue normal, teeth and gums normal, oropharynx normal. Neck: Supple, no adenopathy; thyroid symmetric, normal size, no bruits. Lungs: Lungs clear to auscultation. No wheezing, rhonchi, rales. Heart: RRR without murmur, gallop, or rubs. No ectopy. Abdomen: Normal abdominal exam, Abdomen soft, non-tender. Bowel sounds normal. No masses, organomegaly. Health Maintenance List TETANUS due on 1989 PAP EVERY 5 YEARS due on 2008 HPV EVERY 5 YEARS due on 2008 INFLUENZA(1) due on 11/18/2016 Data reviewed Nnone ASSESSMENT/PLAN: 1. Headache, unspecified headache type - ICD9: 784.0, ICD10: R51 (primary diagnosis) With increasing symptoms will check CT - CT BRAIN WO IVCON 2. Anemia, unspecified type - ICD9: 285.9, ICD10: D64.9 - CBC - IRON + TIBC 3. Fatigue, unspecified type - ICD9: 780.79, ICD10: R53.83 - COMP METABOLIC PANEL - TSH BLD - CBC - IRON + TIBC 4. Depression, unspecified depression type - ICD9: 311, ICD10: F32.9 5. Anxiety - ICD9: 300.00, ICD10: F41.[address] and labs; follow up after that; may consider treatment for anxiety if other workup neg Ean León MD CNOV Observed: 06/09/2017 Status: COMPLETED Source: [place] 9:40 AM [facility] REPOSITORY Office Visit (FAMPWS) NATASHA BLAKE ([id number]) 1980 F Date Time Provider Department 06/09/17 9:40 AM EAN LEÓNWS During your visit today, we recorded the following information about you: Pulse Respiration Blood pressure Weight 76/minute 14/minute 110/68 89.8 kg Last Period 05/29/17 Ean León MD 06/09/2017 10:35 AM Signed Chief Complaint Patient presents with: Headache: patient has been getting headaches, neck pain and vision changes for several months now. Increase in headaches. HPI Natasha Blake is a 37 year old female who presents here today for evaluation of multiple symptoms. Increasing headaches for several months. Gets pain in her neck, then sharp pain in forehead, behind right eye typically, then has blurred vision, dizziness. Lasts up to 30 minutes. Getting more frequent and worse. Has also had increased anxiety, some panic attacks. Some depression; had break up of relationship last year, now in new relationship. No meds for this, has not been treated in the past. Family history of anxiety and depression. She was seen in ER once; told iron level was los; no other evaluation done. Has a history of anemia in the past. Single; three children, works at [employer]. Past medical history, appointments, medications, allergies reviewed. Previous Medical History No past medical history on file. Previous Surgical History No past surgical history on file. Family History No family history on file. Patient Allergies ALLERGIES Allergen Reactions - Seasonal Allergies Other: See Comments Itchy, watery eyes, sneezing Current Medications No current outpatient prescriptions on file prior to visit. No current facility-administered medications on file prior to visit. Social History Social History Marital status: Single Spouse name: Years of education: Number of children: Social History Main Topics Smoking status: Never Smoker Smokeless status: Never Used EXAM: BP 110/68 (BP Site: Right Arm, BP Position: Sitting, BP Cuff Size: Regular Adult) Pulse 76 Resp 14 Wt 89.8 kg (198 lb) LMP 05/29/2017 (Exact Date) General Appearance: Well appearing, alert, in no acute distress, well-hydrated, well nourished.. Eyes: Anicteric sclera. Pupils are equally round and reactive to light. Extraocular movements are intact. . Ears: External ears normal, canals clear. Oropharynx: Lips, mucosa, and tongue normal, teeth and gums normal, oropharynx normal. Neck: Supple, no adenopathy; thyroid symmetric, normal size, no bruits. Lungs: Lungs clear to auscultation. No wheezing, rhonchi, rales. Heart: RRR without murmur, gallop, or rubs. No ectopy. Abdomen: Normal abdominal exam, Abdomen soft, non-tender. Bowel sounds normal. No masses, organomegaly. Health Maintenance List TETANUS due on 1989 PAP EVERY 5 YEARS due on 2008 HPV EVERY 5 YEARS due on 2008 INFLUENZA(1) due on 11/18/2016 Data reviewed Nnone ASSESSMENT/PLAN: 1. Headache, unspecified headache type - ICD9: 784.0, ICD10: R51 (primary diagnosis) With increasing symptoms will check CT - CT BRAIN WO IVCON 2. Anemia, unspecified type - ICD9: 285.9, ICD10: D64.9 - CBC - IRON + TIBC 3. Fatigue, unspecified type - ICD9: 780.79, ICD10: R53.83 - COMP METABOLIC PANEL - TSH BLD - CBC - IRON + TIBC 4. Depression, unspecified depression type - ICD9: 311, ICD10: F32.9 5. Anxiety - ICD9: 300.00, ICD10: F41.[address] and labs; follow up after that; may consider treatment for anxiety if other workup neg Ean León MD Referring Provider: SELF [[id number]] Allergies As of Date: 06/09/2017 Noted Allergy Reaction SEASONAL ALLERGIES 06/09/2017 14 - Other: See Comments Comments: Itchy, watery eyes, sneezing Date Reviewed: 11/16/2011 Reviewed by: Funmilayo Whiting - Fully Assessed Reason for Visit: Headache [52] Cmt: patient has been getting headaches, neck pain and vision changes for several months now. Increase in headaches. Primary Visit Diagnosis:Headache, unspecified headache type [R51] Other Visit Diagnoses:Anemia, unspecified type [D64.9] Fatigue, unspecified type [R53.83] Depression, unspecified depression type [F32.9] Anxiety [F41.9] Order(s):albuterol HFA (VENTOLIN HFA) 90 mcg/actuation inhalerInhale 2 Puffs as instructed every 4 hours as needed for Wheezing/Shortness of Breath.Disp: 1 InhalerRfl: 0 COMP METABOLIC PANEL [SQCMP] Order #: [id number] FUTURE TSH BLD [SQTSH] Order #: [id number] FUTURE CBC [SQCBC] Order #: [id number] FUTURE IRON + TIBC [SQIRON] Order #: [id number] FUTURE CT BRAIN WO IVCON [[id number]] Order #: [id number] FUTURE Prescriptions as of 06/09/2017 Sig: ALBUTEROL SULFATE HFA 90 MCG/* Inhale 2 Puffs as instructed * Problem List As Of Date: 06/09/2017 (None) Prescriptions ordered this encounter Disp Refills Start End ALBUTEROL SULFATE HFA 90 MCG/ACTUATI* 1 In* 0 06/09/2017 Class: Med Update Route: INHALATION Sig: Inhale 2 Puffs as instructed every 4 hours as needed for Wheezing/Shortness of Breath. Disposition: Return in about 1 month (around 07/10/2017). Follow-up and Disposition History Recorded Encounter Status:Closed by EAN LEÓN MD on 06/09/17 ALLERGIES ALLERGIES DATE TYPE / CODE NAME / CODE REACTION SEVERITY SOURCE 02/13/2018 Drug morphine/[id number] Other Unknown [place] Allergy/416 45(RXNORM) [facility] [id number]([facility] ED CT) Repository 06/09/2017 Environ/420 SEASONAL OTHER: SEE C [facility] [id number]([facility] ALLERGIES [facility] [place] ED CT) Repository Drug/[id number] morphine [id number] [place] 003([facility]) System Repository Drug/[id number] No Known [place] 003([facility] Allergies [facility]) System Repository Drug/[id number] predniSONE [place] 003(OMED [facility]) System Repository Drug NO KNOWN [facility] Class/79897 ALLERGIES Main [place] 1003(SNOMED Repository CT) ENCOUNTERS ENCOUNTERS ADMIT/DISCHARGE ACCOUNT NUMBER ADMITTING ENCOUNTER LOCATION SOURCE CLASS 02/13/2018/02/14/20 [id number] Emergency Ginger Ginger [address] [place] [facility] Rep[facility] 12/04/2017/12/05/19 [id number] Ambulatory [address] System :[facility] Repository 11/24/2017/11/25/19 [id number] Ambulatory [address] :[facility] Repository 11/07/2017/11/08/19 [id number] Ambulatory [address] System :[facility] Repository 10/06/2017/10/07/19 [id number] Ambulatory [address] [place] Repository 10/06/2017/10/10/19 [id number] Ambulatory [address] Repository 07/10/2017/07/11/19 [id number] Ambulatory [address] Repository 07/10/2017/07/12/19 [id number] Ambulatory [address] Repository 06/09/2017/06/10/19 [id number] Ambulatory [address] Repository 06/09/2017/06/13/19 [id number] Ambulatory [address] Repository PAYERS PAYERS ENCOUNTER GUARANTOR PAYER SUBSCRIBER SOURCE 02/13/2018 NATASHA Emerson Primary NATASHA Miles [id number] Insurance:CARESOURCEP FISHERDOB: [facility] [place] Number: [id number] 286[address]Yhq: [phone] [id number] Repository [phone] () Date:2018-02-13 [facility] [place] [address]FB: 02/13/2018 Secondary NOT GIVENUNK Ginger Insurance:SELF PAY [facility] Number: Effective Repository Date:2018-02-13 12/04/2017 NATASHA Emerson Primary NATASHA L Mormon FISHERDOB: [facility] FISHERDOB: [facility] [id number] MCAIDPolicy Number: [id number] System [address] Effective [address] Repository [place], [place] Date:2017-11-24 [place] [address]Inv: 2023-05-38Xpiv [id number]: Name:[id number] () [address] [place] [address] ()Tel: [phone]: ([phone] 11/24/2017 NATASHA Idania Primary NATASHA L Mormon FISHERDOB: [facility] FISHERDOB: [facility] [id number] MCAIDPolicy Number: [id number] System [address] Effective [address] Repository [place], [place] Date:2017-11-07 [place] [address]Pkm: [id number] [address]Nii: Name:[id number] () [address] [place] [address] (HP)Tel: [phone]: [phone] 11/07/2017 NATASHA Yuen FISHERDOB: [facility] [id number] MCAIDPolicy Number: [id number] System [address] Effective [address] Repository [place], [place] Date:2017-10-17 [place] [address]Gpy: [id number] [address]Nbm: Name:[id number] () [address] [place] [address] ()Tel: [phone]: ([phone]) [phone]
== END 2018-02-13 22:40 | disposition home or self-care (01) ==
PROVIDERS: Emergency Provider Emergency Medicine; Family Provider Family Medicine; PCP Family Medicine
DX: N10 Acute pyelonephritis (principal); R10.9 Unspecified abdominal pain; Z79.51 Long term (current) use of inhaled steroids
CPT/HCPCS: 81001; 81025; 87077; 87086; 87088; 87186; 99282

== ENCOUNTER 2018-03-08 15:11 | Emergency (ER) | payer MEDICAID, SELFPAY ==
[2018-03-08 15:12] VITALS: BP 128/79; PULSE 67; RESP 18; TEMP 36.6; O2SAT 100; BMI 31.9
--- NOTE | 2018-03-08 15:24 | EKG12_ITS ---
Test Reason : VAG BLEED Blood Pressure : / mmHG Vent. Rate : 064 BPM Atrial Rate : 064 BPM P-R Int : 134 ms QRS Dur : 078 ms QT Int : 374 ms P-R-T Axes : 017 030 012 degrees QTc Int : 385 ms Normal sinus rhythm Normal ECG Confirmed by DEION WAGNER ([id number]), film editor supervisor KENZIE PYLE ([id number] on 03/14/2018 2:40:07 PM Referred By: TAYLOR Confirmed By:DEION WAGNER
--- NOTE | 2018-03-08 15:26 | NURSING ---
NO OLD EKGS
[2018-03-08] MEDS: 0.9% Normal Saline 1,000 ML 1000 ML IV (15:28)
--- NOTE | 2018-03-08 15:29 | ED.VISSUMM ---
- ER Visit Summary Date of Service: 03/08/18 Chief Complaint: Vaginal bleeding History of Present Illness: The patient is a 37 F presenting with heavy vaginal bleeding. She states she started her period yesterday. She has not had a period for the past 2 months. She states she was recently on antibiotics for UTI and recently treated for yeast infection. She finished these treatments. She states while at work today she had episodes of dizziness requiring her to sit down. She had no syncope. She denies abdominal pain or cramping. Denies possibility of . She has history of heavy periods in the past. She is not on blood thinners. She has a history iron deficiency anemia and has been out of her iron supplements. Physical Examination: Vitals are stable. Patient is afebrile. Alert no acute distress. HEENT exam is unremarkable. Neck is supple. Lungs are clear and equal bilaterally. Heart is regular rate and rhythm. Abdomen is soft nontender nondistended. No rebound or guarding. : Small amount of blood in the vaginal vault. This is cleared with cotton tip swab. There is no active bleeding. No cervical motion tenderness. No adnexal tenderness. Extremities are unremarkable. Skin is warm and dry. Remainder of exam is unremarkable. Emergency Department Course and Treatment: Patient is given IV fluids. With orthostatic vitals her blood pressure went from 125 to 109 systolic and her heart rate went from 71 to 81 with standing. She is improved following fluids. CBC shows a hemoglobin of 8.7, MCV 65.5. Chemistries unremarkable. Urinalysis unremarkable. HCG negative. Patient is given prescription for iron sulfate. Discussed with Dr. Torres and patient will follow-up in her office. She is advised to return to the ED for any worsening complaints. Disposition: Discharge home Impression: Vaginal bleeding, iron deficiency anemia This note was generated with [employer] dictation software. It may contain incorrect words, spelling, and punctuation that were not noted in review of the chart prior to signing ED Disposition - Plan for ED Patient: Chief Complaint: Vag Bleeding Instructions: ED Bleed Irregular Vaginal Prescriptions: Ferrous Sulfate 325 mg PO BID #60 tablet Referrals: Amber Howard MD [STAFF PHYSICIAN] - Edgar Lawton MD [Primary Care Provider] -
[2018-03-08 15:52] LABS: Anion Gap 5 (5-15); BUN 13 mg/dL (7-18); BUN/Creat Ratio 18.5 RATIO (10-20); Calcium,Total 9.1 mg/dL (8.5-10.1); Chloride 108 mmol/L (98-107); EST Glomerular Filtration Rate 98 mL/min (>60); Est Glom Filt Rate - Afr Amer 119 mL/min (>60); Estimated Creatinine Clearance 104.93 ml/min; Glucose 80 mg/dL (74-106); Potassium 3.8 mmol/L (3.5-5.1); Sodium Level 139 mmol/L (136-145)
[2018-03-08 15:54] LABS: Absolute Lymphocyte Count 1.64 X10^3/ul (0.83-4.51); Absolute Neutrophil Count 2.3 X10^3/uL (2.0-7.7); Basophil# 0.03 X10^3/uL; Basophil% 0.7 % (0-1); Differential Indicated SCAN CRITERIA MET; Eosinophil# 0.15 X10^3/uL; Eosinophils% 3.3 % (0-5); Hematocrit 29.8 % (37-47); Hemoglobin 8.7 g/dl (12.0-15.0); Lymphocyte # 1.64 X10^3/ul (4.0); Lymphocyte % 36.6 % (19-41); Mean Corp Hgb Conc 29.2 g/gl (32-36); Mean Corpuscular Hgb 19.1 pg (27.0-32.0); Mean Corpuscular Volume 65.5 fL (81-99); Mean Platelet Vol. 9.3 fl (6.2-12.0); Monocyte# 0.36 X10^3/uL; Neutrophil % 51.4 % (47-70); POSITIVE COUNT NO; POSITIVE DIFFERENTIAL NO; POSITIVE MORPHOLOGY YES; Platelet Count 305 K/mm3 (150-450); RBC Distribution Width SD 40.3 fl (35.1-43.9); Red Blood Count 4.55 M/mm3 (4.2-5.4); White Blood Count 4.5 K/mm3 (4.4-11.0)
[2018-03-08 15:58] LABS: Bacteria 0 SEEN /hpf (None Seen); Mucous, Urine 0 SEEN /hpf (<or=2+); Red Blood Cells-Urine 0 SEEN /hpf (0-5); Squamous Epithelial Cells - UA 0 SEEN /hpf (5-10); White Blood Cells 0 SEEN /hpf (0-5)
[2018-03-08 16:01] LABS: Color, Urine Yellow (Yellow); Glucose, Dipstick Normal (Normal); Ketone-Dipstick Negative (Negative); Leukocyte Esterase-Dipstick Negative /ul (Negative); Nitrite-Dipstick Negative (Negative); Occult Blood-Urine 250 /ul (Negative); Protein-Dipstick Negative (Negative); Urine Bilirubin Dipstick Negative (Negative); Urine Clarity Clear (Clear); Urine Urobilinogen Normal (Normal)
[2018-03-08 16:02] VITALS: BP 109/86; BP 116/87; BP 125/79; PULSE 71; PULSE 81
[2018-03-08 16:16] LABS: Pregnancy, Serum, hCG Quali. NEGATIVE Negative (0-9 Nonpreg)
[2018-03-08 16:20] LABS: Anisocytosis 2+; Hypochromasia 1+; Microcytosis 4+; Platelet Estimate ADEQUATE (ADEQ)
--- NOTE | 2018-03-08 16:28 | ED.DEP ---
ED Disposition - Plan for ED Patient: Chief Complaint: Vag Bleeding Instructions: ED Bleed Irregular Vaginal Prescriptions: Ferrous Sulfate 325 mg PO BID #60 tablet Referrals: Edgar Lawton MD [Primary Care Provider] - Amber Howard MD [STAFF PHYSICIAN] -
[2018-03-08 16:54] VITALS: BP 106/68; PULSE 71; RESP 18; O2SAT 98
== END 2018-03-08 16:55 | disposition home or self-care (01) ==
PROVIDERS: Emergency Provider Emergency Medicine; Family Provider Family Medicine; PCP Family Medicine
DX: N93.9 Abnormal uterine and vaginal bleeding, unspecified (principal); D50.9 Iron deficiency anemia, unspecified; Z87.440 Personal history of urinary (tract) infections
CPT/HCPCS: 80048; 81001; 84703; 85025; 93005; 99284; J7030

== ENCOUNTER 2018-04-05 17:44 | Emergency (ER) | payer MEDICAID, SELFPAY ==
[2018-04-05 17:45] VITALS: BP 147/92; PULSE 92; RESP 16; TEMP 36.5; O2SAT 100; BMI 32.5
[2018-04-05 18:30] LABS: Absolute Lymphocyte Count 1.79 X10^3/ul (0.83-4.51); Absolute Neutrophil Count 2.7 X10^3/uL (2.0-7.7); Basophil# 0.04 X10^3/uL; Basophil% 0.8 % (0-1); Differential Indicated SCAN CRITERIA MET; Eosinophil# 0.18 X10^3/uL; Eosinophils% 3.5 % (0-5); Hematocrit 28.3 % (37-47); Lymphocyte # 1.79 X10^3/ul (4.0); Lymphocyte % 35.2 % (19-41); Mean Corp Hgb Conc 28.3 g/gl (32-36); Mean Corpuscular Hgb 18.8 pg (27.0-32.0); Mean Corpuscular Volume 66.4 fL (81-99); Mean Platelet Vol. 10.1 fl (6.2-12.0); Monocyte# 0.36 X10^3/uL; Monocyte% 7.1 % (0-10); Neutrophil # 2.71 X10^3/uL (2.7-7.7); Neutrophil % 53.2 % (47-70); POSITIVE COUNT NO; POSITIVE DIFFERENTIAL NO; POSITIVE MORPHOLOGY YES; Platelet Count 378 K/mm3 (150-450); RBC Distribution Width CV 17.3 % (11.6-14.6); RBC Distribution Width SD 41.2 fl (35.1-43.9); Red Blood Count 4.26 M/mm3 (4.2-5.4); White Blood Count 5.1 K/mm3 (4.4-11.0)
[2018-04-05 18:33] LABS: International Normalized Ratio 0.9; Prothrombin Time (Protime)PT. 12.6 SECONDS (11.7-14.9)
[2018-04-05 18:52] LABS: Differential Comment SCANNED; Hypochromasia 2+; Ovalocyte 1+; Polychromasia RARE; Schistocytes RARE
--- NOTE | 2018-04-05 20:03 | ED.DCSUM_ITS ---
- ER Visit Summary Date of Service: 04/05/18 Chief Complaint: Vaginal bleeding History of Present Illness: The patient is a 37 F presenting for evaluation secondary to vaginal bleeding. Patient reports that she has a history of having heavy menstrual cycles. She is due for the start of her menstrual cycle currently, and had an onset of very heavy vaginal bleeding just prior to arrival where she was soaking 3 pads in an hour. She denies that she was having any sort of chest pain shortness of breath or lightheadedness. The new historical factor is that the patient recently had colposcopy performed 2 days ago with biopsies taken. She has been having some vaginal spotting since then. Patient denies that she has any sort of easy bleeding issues, she is not on any sort of anticoagulants. She is supposed to be taking iron which she is not currently taking. Review of systems otherwise negative. Physical Examination: Vital signs within normal limits. Pelvic exam shows normal external genitalia with no lesions. Speculum exam shows a very mild amount of active bleeding. The vaginal vault was easily cleared of blood, there was no clots. The 2 areas of biopsy were noted to be cauterized, not actively bleeding. Test Results: CBC demonstrates a hemoglobin of 8 Emergency Department Course and Treatment: Patient presented for evaluation secondary to vaginal bleeding. Blood work shows a hemoglobin of 8 which is only down one half of a gram per deciliter from the end of February. Physical exam showed only very mild bleeding at this time. I do not believe that at this time the patient has hemodynamically significant bleeding, and I discussed this with Dr. Romero her surgeon. She recommended that she follow-up in the office tomorrow. Patient understands signs and symptoms for which to return. I believe the patient's bleeding likely is secondary to her baseline menorrhagia. Disposition: Discharge Impression: 1. Menorrhagia 2. Iron deficiency anemia This note was generated with [employer] dictation software. It may contain incorrect words, spelling, and punctuation that were not noted in review of the chart prior to signing ED Disposition - Plan for ED Patient: Disposition: Home or Assisted Living Chief Complaint: Vag Bleeding Diagnosis: Menorrhagia Instructions: ED Bleeding Menstrual Heavy Referrals: Ade Romero [STAFF PHYSICIAN] - (Call the office between 8 and 830 tomorrow)
--- OUTSIDE RECORDS SUMMARY | 2018-06-10 12:27 | XMS RPT_ITS ---
:1980 Author Organization [facility] Care Team Providers Name Role Phone EAN LEÓN Attending Unavailable EAN LEÓN Referring Unavailable EAN LEÓN Attending Unavailable EAN LEÓN Referring Unavailable NETTE WARNER (ANVILSMITH) Referring Unavailable EAN LEÓN Attending Unavailable EAN LEÓN Referring Unavailable KARINA CHURCHILL Attending Unavailable KARINA CHURCHILL Attending Unavailable FELICIANOIDRE Referring Unavailable MARTIN CHURCHILLRE Attending Unavailable KARINA CHURCHILL Attending Unavailable KARINA CHURCHILL Referring Unavailable EAN LEÓN Referring Unavailable Dc, Nikkie Attending Unavailable Lisha Chapa Primary Care Unavailable Dc, Nikkie Attending Unavailable Lisha Chapa Primary Care Unavailable Dc, Nikkie Attending Unavailable Lisha Chapa Primary Care Unavailable Ean León Primary Care Unavailable Belen Ruth Attending Unavailable Ean León Primary Care Unavailable Cory Mcintyre Attending Unavailable Ortiz Burkett Attending Unavailable Ean León Primary Care Unavailable PROBLEMS PROBLEMS DATE TYPE CONDITION / CODE ATTENDING STATUS SOURCE 10/18/2017 Active Iron deficiency NA Active [facility] anemia, [place] unspecified / Repository D50.9(ICD-10) 04/12/2018 Active Iron deficiency NA Active [facility] anemia secondary [place] to blood loss Repository (chronic) / D50.0(ICD-10) 06/09/2017 Active Other fatigue / NA Active [facility] R53.83(ICD-10) [place] Repository 06/09/2017 Active Anemia, NA Active [facility] unspecified / [place] D64.9(ICD-10) Repository PROCEDURES PROCEDURES No Procedure Records FoundRESULTS RESULTS CBC AND DIFFERENTIAL Collected: 04/12/2018 Status: F Source: [place] 4[facility] REPOS[facility]ORY TYPE CODE TESTS RESULT OUT OF REFERENCE UNITS RANGE LAB WBC 3.70-11.00 k/uL WBC 5.50 LAB RBC 3.90-5.20 m/uL RBC 4.16 LAB HGB 11.5-15.5 g/dL Low Hemoglobin 8.0 LAB HCT 36.0-46.0 % Low Hematocrit 28.4 LAB MCV 80.0-100.0 fL Low MCV 68.3 LAB MCH 26.0-34.0 pG Low MCH 19.2 LAB MCHC 30.5-36.0 g/dL Low MCHC 28.2 LAB RDWCV 11.5-15.0 % RDW-CV High 17.6 LAB PLTCT 150-400 k/uL Platelet High Count 470 LAB MPV 9.0-12.7 fL MPV 10.1 LAB ANEUT % Neut% 53.1 LAB AANEUT 1.45-7.50 k/uL Abs Neut 2.92 LAB ALYMP % Lymph% 32.9 LAB AALYMP 1.00-4.00 k/uL Abs Lymph 1.81 LAB AMONO % Inyo% 9.5 LAB AAMONO <0.87 k/uL Abs Inyo 0.52 LAB AEOS % Eosin% 3.6 LAB AAEOS <0.46 k/uL Abs Eosin 0.20 LAB ABASO % Baso% 0.9 LAB AABASO <0.11 k/uL Abs Baso 0.05 LAB AUNRBC 0 /100 WBC NRBCs 0.0 LAB ABNRBC <0.01 k/uL Absolute nRBC <0.01 LAB DTYP DTYPE Auto Diff Performed By: #### CBCDIF, IRON, FERR #### [facility] [address] [id number] IRON AND TIBC Collected: 04/12/2018 Status: F Source: [place] 4:21 PM [facility] REPOSITORY TYPE CODE TESTS RESULT OUT OF REFERENCE UNITS RANGE LAB IRN 41-186 ug/dL Low Iron 12 LAB TIBC 232-386 ug/dL TIBC High 488 LAB SAT 15-57 % Low Transferrin Saturatn 2 Performed By: #### CBCDIF, IRON, FERR #### [facility] [address] [id number] FERRITIN Collected: 04/12/2018 Status: F Source: [place] 4:21 PM [facility] REPOSITORY TYPE CODE TESTS RESULT OUT OF REFERENCE UNITS RANGE LAB FERR 14.7-205.1 ng/mL Low Ferritin 5.2 Performed By: #### CBCDIF, IRON, FERR #### [facility] [address] [id number] CNNURSE Observed: 04/12/2018 Status: COMPLETED Source: [place] 4:00 PM [facility] REPOSITORY Nurse Visit (WOOB) NATASHA BLAKE ([id number]) 1980 F Date Time Provider Department 04/12/18 4:00 PM NURSE PRE OWNED SALES MANAGER [facility] During your visit today, we recorded the following information about you: Blood pressure Weight 116/84 93.9 kg Natasha Wang RN 04/12/2018 4:16 PM Signed Patient identified by name and date of . Natasha Blake is here for a Depo Provera injection. Patient brought medication. Date last injected: first injection - negative test. Depo-Provera, 150 mg, administered IM left upper quadrant gluteus Depo-Provera was given without incident. Date of last menses: Patient's last menstrual period was 04/04/2018. Patient instructed to return to clinic on 12 weeks +/- 5 days. [email or web address] Provider Mary Muñoz CNM was present in office at time of injection. Natasha Wang RN 04/12/2018 3:56 PM Signed DEPO-PROVERA control is a way for men and women to prevent . There are many different methods of control; some types also protect against sexually transmitted diseases. Depo-Provera is a control method for women. It is made up of a hormone similar to progesterone and is given as a shot into the woman's arm or buttocks. Each shot provides protection against for up to 14 weeks, but the shot must be received once every 3 months. Depo-Provera does not protect against sexually transmitted diseases. Where can I get Depo-Provera? You must receive the shot from a doctor. The shot is usually given within five days of the beginning of your menstrual period. How is Depo-Provera used? Once the shot has been given, no additional steps are needed to prevent . With Depo-Provera, you must receive another shot once every three months to remain fully protected. How soon does it work? Protection begins immediately after the first shot if given during a menstrual period. How effective is Depo-Provera? Depo-Provera is 99% effective in preventing . Can any woman use Depo-Provera? Most women can use Depo-Provera. However, it is not recommended for women who have: Unexplained vaginal bleeding Liver disease Breast cancer Blood clots Are there side effects associated with Depo-Provera? Depo-Provera can cause a number of side effects, including: Irregular menstrual periods, or no periods at all Headaches Nervousness Depression Dizziness Acne Changes in appetite Weight gain Excessive growth of facial and body hair Hair loss You should discuss the potential side effects of Depo-Provera with your doctor. Most of the side effects are not common. Change in the menstrual cycle is the most common side effect. You may experience irregular bleeding or spotting. After a year of use, about 50% of women will stop getting their periods. Their periods usually return when they discontinue the shots. Can I become after I stop using Depo-Provera? With Depo-Provera, you could become as soon as 12 to 14 weeks after your last shot. It may take some women up to a year or two to conceive after they stop using this type of control. Does Depo-Provera protect against sexually transmitted diseases? No. To help protect yourself from STDs, use a male condom each time you and your partner have sex. What are the advantages of using Depo-Provera? You don't have to remember to take it every day or use it before sex. It provides long-term protection as long as you get the shot every three months. It doesn't interfere with sexual activity. It's over 99% effective. It's less expensive than the Pill. What are the disadvantages of using Depo-Provera? It can cause unwanted side effects. It does not provide protection against sexually transmitted diseases. It can cause irregular menstrual periods. You need to stop taking Depo-Provera several months ahead of time if you plan to become . Regular doctor visits can be inconvenient. ? Copyright 0158-0922 [facility]. All rights reserved This information is provided by the [facility] and is not intended to replace the medical advice of your doctor or health care provider. Please consult your health care provider for advice about a specific medical condition. For additional written health information, please contact the Health Information Center at the [facility] or toll-free extension [phone]. This document was last reviewed on: 2004 Referring Provider: SELF [[id number]] Allergies As of Date: 04/12/2018 Noted Allergy Reaction SEASONAL ALLERGIES 06/09/2017 14 - Other: See Comments Comments: Itchy, watery eyes, sneezing Date Reviewed: 04/10/2018 Reviewed by: Stefanie Gutierres Ma - Fully Assessed Reason for Visit: Depo Provera Injection [1655] Primary Visit Diagnosis:Encounter for management and injection of depo-Provera [Z30.42] Order(s):HCG QUAL UR B/O [[id number]] Order #: [id number] Prescriptions as of 04/12/2018 Sig: MEDROXYPROGESTERONE 150 MG/ML* Inject 1 mL intramuscularly e* FERROUS SULFATE 325 MG (65 MG* Take 1 tablet by mouth twice * CETIRIZINE 10 MG TABLET Take 1 tablet by mouth once d* ALBUTEROL SULFATE HFA 90 MCG/* Inhale 2 Puffs as instructed * Problem List As Of Date 04/12/2018 Noted Resolved Iron deficiency anemia [D50.9] INVALID FOR* Other instructions from your clinician: DEPO-PROVERA control is a way for men and women to prevent . There are many different methods of control; some types also protect against sexually transmitted diseases. Depo-Provera is a control method for women. It is made up of a hormone similar to progesterone and is given as a shot into the woman's arm or buttocks. Each shot provides protection against for up to 14 weeks, but the shot must be received once every 3 months. Depo-Provera does not protect against sexually transmitted diseases. Where can I get Depo-Provera? You must receive the shot from a doctor. The shot is usually given within five days of the beginning of your menstrual period. How is Depo-Provera used? Once the shot has been given, no additional steps are needed to prevent . With Depo-Provera, you must receive another shot once every three months to remain fully protected. How soon does it work? Protection begins immediately after the first shot if given during a menstrual period. How effective is Depo-Provera? Depo-Provera is 99% effective in preventing . Can any woman use Depo-Provera? Most women can use Depo-Provera. However, it is not recommended for women who have: Unexplained vaginal bleeding Liver disease Breast cancer Blood clots Are there side effects associated with Depo-Provera? Depo-Provera can cause a number of side effects, including: Irregular menstrual periods, or no periods at all Headaches Nervousness Depression Dizziness Acne Changes in appetite Weight gain Excessive growth of facial and body hair Hair loss You should discuss the potential side effects of Depo- Provera with your doctor. Most of the side effects are not common. Change in the menstrual cycle is the most common side effect. You may experience irregular bleeding or spotting. After a year of use, about 50% of women will stop getting their periods. Their periods usually return when they discontinue the shots. Can I become after I stop using Depo-Provera? With Depo-Provera, you could become as soon as 12 to 14 weeks after your last shot. It may take some women up to a year or two to conceive after they stop using this type of control. Does Depo-Provera protect against sexually transmitted diseases? No. To help protect yourself from STDs, use a male condom each time you and your partner have sex. What are the advantages of using Depo-Provera? You don't have to remember to take it every day or use it before sex. It provides long-term protection as long as you get the shot every three months. It doesn't interfere with sexual activity. It's over 99% effective. It's less expensive than the Pill. What are the disadvantages of using Depo-Provera? It can cause unwanted side effects. It does not provide protection against sexually transmitted diseases. It can cause irregular menstrual periods. You need to stop taking Depo-Provera several months ahead of time if you plan to become . Regular doctor visits can be inconvenient. ? Copyright 2259-1740 [facility]. All rights reserved This information is provided by the [facility] and is not intended to replace the medical advice of your doctor or health care provider. Please consult your health care provider for advice about a specific medical condition. For additional written health information, please contact the Health Information Center at the [facility] or toll-free extension [phone]. This document was last reviewed on: 2004 Disposition: Return in 12 weeks (on 07/05/2018). Follow-up and Disposition History Recorded Encounter Status:Closed by NATASHA WANG RN on 04/12/18 PROGRESS Observed: 04/12/2018 Status: COMPLETED Source: [place] 3:56 PM [facility] REPOSITORY HNO ID: [id number] Author: Natasha Wang RN Service: (none) Author Type: (none) Type: Progress Notes Filed: 04/12/2018 4:16 PM Note Text: Patient identified by name and date of . Natasha Blake is here for a Depo Provera injection. Patient brought medication. Date last injected: first injection - negative test. Depo-Provera, 150 mg, administered IM left upper quadrant gluteus Depo-Provera was given without incident. Date of last menses: Patient's last menstrual period was 04/04/2018. Patient instructed to return to clinic on 12 weeks +/- 5 days. [email or web address] Provider Mary Muñoz CNM was present in office at time of injection. Natasha Wang RN HISTORY PHYSICAL Observed: 04/10/2018 Status: COMPLETED Source: [place] 11:49 AM [facility] REPOSITORY HNO ID: [id number] Author: Karina Chadwick Service: (none) Author Type: Physician Type: HANDP Filed: 04/10/2018 12:08 PM Note Text: Natasha Blake is a 37 year old female who presents for follow up from [facility] - pelvic ultrasound and Colposcopy bx results. Pt reports went to ER the other day after having colposcopy due to heavy bleeding- Hg was 8 at that time. Pt was given results of ultrasound shows 5.4 cm fibroid that is impeding on endometrium. Pt was given options of hormones vs surgical - pt would like to proceed with homronal mgmt. Pt denies any personal history of migraines w/ aura, tobacco use, breast cancer or bleeding disorders. Pt interested in Depo. Pt offers no other concerns today. PAST MEDICAL HISTORY Diagnosis Date - VILLA (headache) No past surgical history on file. No family history on file. Social History Marital status: Single Spouse name: Years of education: Number of children: Social History Main Topics Smoking status: Never Smoker Smokeless tobacco: Never Used Current Outpatient Prescriptions: cetirizine (ZYRTEC) 10 mg tablet Take 1 tablet by mouth once daily as needed. albuterol HFA (VENTOLIN HFA) 90 mcg/actuation inhaler Inhale 2 Puffs as instructed every 4 hours as needed for Wheezing/Shortness of Breath. ferrous sulfate 325 mg (65 mg iron) tablet Take 1 tablet by mouth twice daily. No current facility-administered medications for this visit. Allergies As of Date: 04/10/2018 Allergen Noted Reaction SEASONAL ALLERGIES 06/09/2017 Other: See Comments Fully Assessed 04/10/2018 REVIEW OF SYSTEMS Abdomen: No abdominal pain, nausea, vomiting, diarrhea, or constipation. Bladder: no dysuria .. Expanded ROS: N/A Allergies and current medication updated:Yes EXAM: BP 118/60 Wt 202 lb (91.6kg) LMP 04/04/2018 GENERAL: pleasant, female in no apparent distress HEENT: Normocephalic, atraumatic, mucus membranes moist and no lesions NECK: full range of motion DERMATOLOGY: Normal, without lesions, non-icteric and non-hirsute NEURO: alert and oriented x3,exam grossly non-focal EXTREMITIES: normal ASSESSMENT AND PLAN: Encounter Diagnosis ICD-10-CM 1. Abnormal uterine bleeding (AUB) N93.9 2. Iron deficiency anemia due to chronic blood loss D50.0 IRON + TIBC FERRITIN BLD CBC 3. Intramural and submucous leiomyoma of uterus D25.1 D25.0 4. Will order picker/assembler her PO iron and start 5. Will get labs today- consider IV iron therapy 6. Mirena vs OCps vs Depo reviewed- pt would like to proceed with DEPO - will return tomorrow for NURSE visit for injection 7. Consider hysterectomy if fails hormones 8. RTO 3 mo for follow up call sooner if heavy bleeding or other concerns Karina Goff MD CNOV Observed: 04/10/2018 Status: COMPLETED Source: [place] 11:40 AM [facility] REPOSITORY Office Visit (WOOB) NATASHA BLAKE ([id number]) 1980 F Date Time Provider Department 04/10/18 11:40 AM KARINA CHURCHILL During your visit today, we recorded the following information about you: Blood pressure Weight Last Period 118/60 91.6 kg 04/04/18 Karina Goff MD 04/10/2018 12:08 PM Signed Natasha Blake is a 37 year old female who presents for follow up from [facility] - pelvic ultrasound and Colposcopy bx results. Pt reports went to ER the other day after having colposcopy due to heavy bleeding- Hg was 8 at that time. Pt was given results of ultrasound shows 5.4 cm fibroid that is impeding on endometrium. Pt was given options of hormones vs surgical - pt would like to proceed with homronal mgmt. Pt denies any personal history of migraines w/ aura, tobacco use, breast cancer or bleeding disorders. Pt interested in Depo. Pt offers no other concerns today. PAST MEDICAL HISTORY Diagnosis Date - VILLA (headache) No past surgical history on file. No family history on file. Social History Marital status: Single Spouse name: Years of education: Number of children: Social History Main Topics Smoking status: Never Smoker Smokeless tobacco: Never Used Current Outpatient Prescriptions: cetirizine (ZYRTEC) 10 mg tablet Take 1 tablet by mouth once daily as needed. albuterol HFA (VENTOLIN HFA) 90 mcg/actuation inhaler Inhale 2 Puffs as instructed every 4 hours as needed for Wheezing/Shortness of Breath. ferrous sulfate 325 mg (65 mg iron) tablet Take 1 tablet by mouth twice daily. No current facility-administered medications for this visit. Allergies As of Date: 04/10/2018 Allergen Noted Reaction SEASONAL ALLERGIES 06/09/2017 Other: See Comments Fully Assessed 04/10/2018 REVIEW OF SYSTEMS Abdomen: No abdominal pain, nausea, vomiting, diarrhea, or constipation. Bladder: no dysuria .. Expanded ROS: N/A Allergies and current medication updated:Yes EXAM: BP 118/60 Wt 202 lb (91.6kg) LMP 04/04/2018 GENERAL: pleasant, female in no apparent distress HEENT: Normocephalic, atraumatic, mucus membranes moist and no lesions NECK: full range of motion DERMATOLOGY: Normal, without lesions, non-icteric and non-hirsute NEURO: alert and oriented x3,exam grossly non-focal EXTREMITIES: normal ASSESSMENT AND PLAN: Encounter Diagnosis ICD-10-CM 1. Abnormal uterine bleeding (AUB) N93.9 2. Iron deficiency anemia due to chronic blood loss D50.0 IRON + TIBC FERRITIN BLD CBC 3. Intramural and submucous leiomyoma of uterus D25.1 D25.0 4. Will order picker/assembler her PO iron and start 5. Will get labs today- consider IV iron therapy 6. Mirena vs OCps vs Depo reviewed- pt would like to proceed with DEPO - will return tomorrow for NURSE visit for injection 7. Consider hysterectomy if fails hormones 8. RTO 3 mo for follow up call sooner if heavy bleeding or other concerns Karina Goff MD Referring Provider: KARINA CHURCHILL [[id number]] Allergies As of Date: 04/10/2018 Noted Allergy Reaction SEASONAL ALLERGIES 06/09/2017 14 - Other: See Comments Comments: Itchy, watery eyes, sneezing Date Reviewed: 04/10/2018 Reviewed by: Stefanie Gutierres Ma - Fully Assessed Reason for Visit: Follow Up [171] Primary Visit Diagnosis:Abnormal uterine bleeding (AUB) [N93.9] Other Visit Diagnoses:Iron deficiency anemia due to chronic blood loss [D50.0] Intramural and submucous leiomyoma of uterus [D25.1, D25.0] Order(s):IRON + TIBC [SQIRON] Order #: [id number] FUTURE FERRITIN BLD [SQFERR] Order #: [id number] FUTURE CBC [SQCBC] Order #: [id number] FUTURE medroxyPROGESTERone (DEPO-PROVERA) 150 mg/mL injectionInject 1 mL intramuscularly every 12 weeks.Disp: 1 VialRfl: 4 Prescriptions as of 04/10/2018 Sig: CETIRIZINE 10 MG TABLET Take 1 tablet by mouth once d* ALBUTEROL SULFATE HFA 90 MCG/* Inhale 2 Puffs as instructed * MEDROXYPROGESTERONE 150 MG/ML* Inject 1 mL intramuscularly e* FERROUS SULFATE 325 MG (65 MG* Take 1 tablet by mouth twice * Problem List As Of Date 04/10/2018 Noted Resolved Iron deficiency anemia [D50.9] INVALID FOR* Prescriptions ordered this encounter Disp Refills Start End MEDROXYPROGESTERONE 150 MG/ML INTRAM* 1 Vi* 4 04/10/2018 Route: INTRAMUSCULA Sig: Inject 1 mL intramuscularly every 12 weeks. Disposition: Return in about 3 months (around 07/09/2018) for [facility] follow . Follow-up and Disposition History Recorded Encounter Status:Closed by KARINA CHADWICK MD on 04/10/18 EMERGENCY DEPARTMENT Observed: 04/06/2018 Status: F Source: [facility] SUMMARY 12:21 AM [facility] [place], [place] REPOSITORY [facility] Medical Records Department [address] [place] [address] Emergency Department Summary 04/05/181999 MR#: [id number] Acct: [id number] Name: NATASHA BLAKE Rep #: [id number] : 1980 37 From: Cory Mcintyre MD PCP: Ean León MD Status: DEP ER - ER Visit Summary Date of Service: 04/05/18 Chief Complaint: Vaginal bleeding History of Present Illness: The patient is a 37 F presenting for evaluation secondary to vaginal bleeding. Patient reports that she has a history of having heavy menstrual cycles. She is due for the start of her menstrual cycle currently, and had an onset of very heavy vaginal bleeding just prior to arrival where she was soaking 3 pads in an hour. She denies that she was having any sort of chest pain shortness of breath or lightheadedness. The new historical factor is that the patient recently had colposcopy performed 2 days ago with biopsies taken. She has been having some vaginal spotting since then. Patient denies that she has any sort of easy bleeding issues, she is not on any sort of anticoagulants. She is supposed to be taking iron which she is not currently taking. Review of systems otherwise negative. Physical Examination: Vital signs within normal limits. Pelvic exam shows normal external genitalia with no lesions. Speculum exam shows a very mild amount of active bleeding. The vaginal vault was easily cleared of blood, there was no clots. The 2 areas of biopsy were noted to be cauterized, not actively bleeding. Test Results: CBC demonstrates a hemoglobin of 8 Emergency Department Course and Treatment: Patient presented for evaluation secondary to vaginal bleeding. Blood work shows a hemoglobin of 8 which is only down one half of a gram per deciliter from the end of February. Physical exam showed only very mild bleeding at this time. I do not believe that at this time the patient has hemodynamically significant bleeding, and I discussed this with Dr. Landrum her surgeon. She recommended that she follow-up in the office tomorrow. Patient understands signs and symptoms for which to return. I believe the patient's bleeding likely is secondary to her baseline menorrhagia. Disposition: Discharge Impression: 1. Menorrhagia 2. Iron deficiency anemia This note was generated with [employer] software. It may contain incorrect words, spelling, and punctuation that were not noted in review of the chart prior to signing ED Disposition - Plan for ED Patient: Disposition: Home or Assisted Living Chief Complaint: Vag Bleeding Diagnosis: Menorrhagia Instructions: ED Bleeding Menstrual Heavy Referrals: Jose Landrum [STAFF PHYSICIAN] - (Call the office between 8 and 830 tomorrow) What to do if you have Problems For any increased pain, shortness of breath, bleeding, nausea or vomiting, chest pain, or any unexpected problems, contact your Primary Care Provider. Call [facility] ([phone]) or report to the closest Emergency Room. Call 911 if necessary. 04/06/18 0021 <Electronically signed by Cory Mcintyre MD> Date Cory Mcintyre MD Cosigner Signature (If Indicated): Date CC: Ean León MD CBC W/DIFF, AUTOMATED Collected: 04/05/2018 Status: F Source: [place] 6:13 PM [facility] [place], [place] REPOSITORY TYPE CODE TESTS RESULT OUT OF RANGE REFERENCE UNITS LAB L100.1000 4.4-11.0 K/mm3 Normal WBC 5.1 LAB L100.1200 4.2-5.4 M/mm3 Normal RBC 4.26 LAB L100.1300 12.0-15.0 g/dl Low HGB 8.0 LAB L100.1400 37-47 % Low HCT 28.3 LAB L100.1500 81-99 fL Low MCV 66.4 LAB L100.1600 27.0-32.0 pg Low MCH 18.8 LAB L100.1700 32-36 g/gl Low MCHC 28.3 LAB L100.1810 11.6-14.6 % High RDW CV 17.3 LAB L100.1820 35.1-43.9 fl Normal RDW SD 41.2 LAB L100.1900 150-450 K/mm3 Normal PLT 378 LAB L100.2000 6.2-12.0 fl Normal MPV 10.1 LAB L100.2100 47-70 % Normal NEUT% 53.2 LAB L100.2200 19-41 % Normal LY% 35.2 LAB L100.2300 0-10 % Normal MONO% 7.1 LAB L100.2400 0-5 % Normal EO% 3.5 LAB L100.2500 0-1 % Normal BASO% 0.8 LAB L100.2550 0.0-0.9 % Normal IM GRAN % 0.200 Result Comment: IG% - Immature Granulocytes (promyelocytes, myelocytes and metamyelocytes) > 1% indicates that a LEFT SHIFT is Present. LAB L100.2620 2.0-7.7 X10 3/uL Absolute Neut Normal 2.7 LAB L100.2720 0.83-4.51 X10 3/ul Absolute Lymph Normal 1.79 LAB L100.4500 SMEAR COMMENT Normal SCANNED LAB L100.7500 POLYCHROMASIA Normal RARE LAB L100.7600 HYPOCHROMASIA Normal 2+ LAB L100.8200 OVALOCYTE Normal 1+ LAB L100.8400 SCHISTOCYTES Normal RARE Performed By: #### L100.0100 #### [facility] [address] [place], [address] PROTHROMBIN TIME W/INR Collected: 04/05/2018 Status: F Source: [place] 6:13 PM [facility] [place], [place] REPOSITORY TYPE CODE TESTS RESULT OUT OF RANGE REFERENCE UNITS LAB L300.4150 11.7-14.9 SECONDS Normal PROTIME 12.6 LAB L300.4200 Normal INR 0.9 Performed By: #### L300.3900, L300.4310 #### [facility] [address] [place], [address] PARTIAL THROMBOPLAST Collected: 04/05/2018 Status: F Source: [place] TIME 6:13 PM [facility] [place] [place] REPOSITORY TYPE CODE TESTS RESULT OUT OF RANGE REFERENCE UNITS LAB L300.4310 24.1-36.2 Seconds Normal PTT 30.0 Performed By: #### L300.3900, L300.4310 #### [facility] [address] [place], [address] TYPE AND SCREEN Collected: 04/05/2018 Status: F Source: [place] 6:13 PM [facility] [place] [place] REPOSITORY Order Comment: Reason for Type AND Screen/Red Cells: HEMORRHAGE, VAGINAL TYPE CODE TESTS RESULT OUT OF RANGE REFERENCE UNITS LAB B10.0800 AB Normal BLOOD TYPE GEL POSITIVE LAB B100.4000 Normal Antibody NEGATIVE Screen Performed By: #### B101.7450 #### [facility] [address], [address] SURGICAL PATHOLOGY Observed: 04/03/2018 Status: F Source: [place] 11:35 AM [facility] REPOSITORY Specimen originated from [facility] Specimen #: [id number] Submitting Physician: JOSE LANDRUM MD FINAL DIAGNOSIS 1. Cervix at 4 o'clock, biopsy (A) - Transformation zone with focal acute and chronic inflammation. 2. Cervix at 1 o'clock, biopsy (B) - Transformation zone with focal chronic inflammation. 3. Cervix at 11 o'clock, biopsy (C) - Transformation zone with focal chronic inflammation. 4. Cervix at 7 o'clock, biopsy (D) - Transformation zone with focal chronic inflammation. 5. Endocervix curettings (E) - Fragments of benign endocervical tissue and squamous epithelium. SMS/srj 04/05/2018 Anjelica Key M.D. (Electronic Signature) SPECIMEN SUBMITTED A: CERVIX, BIOPSY 4:00 B: CERVIX, BIOPSY 1:00 C: CERVIX, BIOPSY 11:00 D: CERVIX, BIOPSY 7:00 E: ENDOCERVICAL, CURETTINGS CLINICAL DATA positive hpv on pap smear GROSS DESCRIPTION A. Received in formalin is one piece of vasquez-white soft tissue measuring 0.5 x 0.4 x 0.2 cm. Totally submitted in one cassette. B. Received in formalin is one piece of vasquez-white soft tissue measuring 0.5 x 0.3 x 0.2 cm. Totally submitted in one cassette. C. Received in formalin is one piece of vasquez-white soft tissue measuring 0.4 x 0.3 x 0.2 cm. Totally submitted in one cassette. D. Received in formalin is one piece of vasquez soft tissue measuring 0.7 x 0.4 x 0.3 cm. Totally submitted in one cassette. E. Received in formalin are multiple vasquez, soft feathery segments of tissue aggregating to 0.6 x 0.5 x 0.1 cm. Totally submitted in one cassette. Gross examination performed at [facility], [address] [place] [address] 04/04/2018 1:01:21 AM Date of Report: 04/05/2018 Date of Procedure: 04/03/2018 Date of Receipt: 04/03/2018 Submitted by: JOSE LANDRUM MD Location: [facility] Diagnostic interpretation performed at [facility], [address] [place] [address]. CNOV Observed: 04/03/2018 Status: COMPLETED Source: [place] 10:30 AM [facility] REPOSITORY Office Visit (WOOB) NATASHA BLAKE ([id number]) 1980 F Date Time Provider Department 04/03/18 10:30 AM JOSE LANRDUM During your visit today, we recorded the following information about you: Blood pressure Weight 118/64 90.7 kg Jose Landrum MD 04/03/2018 11:37 AM Signed Natasha Blake is a 37 year old female who presents today for a colposcopy. Her last pap smear was High risk HPV with normal pap from March 2018. Patient has a history of abnormal pap: No. She has had prior treatment: none. test: negative UNIVERSAL PROTOCOL / SAFETY CHECKLIST Procedure to be performed: colposcopy with possible biopsy Sign in Communication: Completed Time Out: Team Confirms the Correct Patient, Correct Procedure, Correct Site and Site Marking, Correct Position (if applicable), Prep and Dry Time (if applicable). Time: 10:35 Affirmation of Time Out: YES Sign Out Discussion: Completed PROCEDURE: EXTERNAL GENITALIA: Normal in appearance without lesions VAGINA: Normal in appearance without lesions CERVIX: Speculum placed in vagina and excellent visualization of cervix achieved. Cervix swabbed x 3 with 3% acetic acid solution. Cervix grossly normal. Squamocolumnar junction visualized. acetowhite changes noted 1,4,7, AND 11 o'clock. BIOPSY: Done at 1:00, 4:00, 7:00 and 11:00 ECC: done HEMOSTASIS: Obtained with Monsel's solution, silver nitrate and pressure Procedure Summary: Patient tolerated procedure well and colposcopy was adequate. ASSESSMENT: HPV effect PLAN: Specimens labeled and sent to Pathology. Will notify patient of results in 1-2 weeks. Post-procedure instructions reviewed and written material given to the patient. MD Stefanie Tyler Ma 04/03/2018 9:31 AM Signed YOUR RECOVERY It may take a few weeks for your cervix to heal. While your cervix heals, you may have: - Vaginal bleeding (less than a normal menstrual period) - Mild cramping - A brown-black vaginal discharge (similar to coffee grounds) which is a result of the paste used to help stop bleeding from the procedure Do NOT put anything in the vagina for 1 week after your colposcopy if your doctor does a biopsy of your cervix. This includes sex, tampons, and douches. If you have any discomfort, you may take an over the counter pain medication (motrin, advil, ibuprofen, tylenol, etc). If this does not relieve your discomfort, contact your doctor's office for a prescription strength pain medication. It is okay to wear a sanitary pad until the discharge and spotting stops. RISKS Although problems seldom occur with colposcopy, there can be some complications. You may feel faint during and shortly after the procedure as well as have some bleeding and vaginal discharge after the procedure. There is also a risk of infection after the procedure. These complications are rare and can be easily treated. You should contact you doctor is you have any of the following: - Heavy bleeding (more than your normal period) - Bleeding with clots - Severe abdominal pain - Fever (more than 100.4F) - Foul smelling vaginal discharge RESULTS If a biopsy was taken, we will have the results of your biopsy in 1-2 weeks. If you do not hear the results of your biopsy after 2 weeks, please contact your physicians office for the results. Depending on the biopsy results, your doctor will determine your follow up plan which may include further testing or treatments. STAYING HEALTHY After the procedure, you will need to see your doctor for follow up visits during the year. At these visits your doctor will check the health of your cervix with a pap smear. After three normal pap smears, your doctor will allow you to return to having exams once a year. If you have another abnormal pap smear, you may need closer follow up for longer or you may need additional treatment. By making a few lifestyle changes after the procedure, you can help protect the health of your cervix: - Have regular pelvic exams and pap smears as ordered by your doctor. - Stop smoking as smoking increases your risk of developing a cancer of the cervix - If you have more than one sexual partner, limit your number of partners and use condoms to reduce your risks of STDs. If you have any additional questions, please contact your doctor's office. Referring Provider: SELF [[id number]] Allergies As of Date: 04/03/2018 Noted Allergy Reaction SEASONAL ALLERGIES 06/09/2017 14 - Other: See Comments Comments: Itchy, watery eyes, sneezing Date Reviewed: 04/03/2018 Reviewed by: Jose Landrum - Fully Assessed Reason for Visit: Colposcopy [4541] Primary Visit Diagnosis:Pre-op testing [Z01.818] Other Visit Diagnosis:Cervical high risk human papillomavirus (HPV) DNA test positive [R87.810] Order(s):HCG QUAL UR B/O [[id number]] Order #: [id number] COLPOSCOPY [[id number]] Order #: [id number] SURGICAL PATHOLOGY [[id number]] Order #: [id number] Prescriptions as of 04/03/2018 Sig: FERROUS SULFATE 325 MG (65 MG* Take 1 tablet by mouth twice * ALBUTEROL SULFATE HFA 90 MCG/* Inhale 2 Puffs as instructed * CETIRIZINE 10 MG TABLET Take 1 tablet by mouth once d* Problem List As Of Date 04/03/2018 Noted Resolved Iron deficiency anemia [D50.9] INVALID FOR* Other instructions from your clinician: YOUR RECOVERY It may take a few weeks for your cervix to heal. While your cervix heals, you may have: - Vaginal bleeding (less than a normal menstrual period) - Mild cramping - A brown-black vaginal discharge (similar to coffee grounds) which is a result of the paste used to help stop bleeding from the procedure Do NOT put anything in the vagina for 1 week after your colposcopy if your doctor does a biopsy of your cervix. This includes sex, tampons, and douches. If you have any discomfort, you may take an over the counter pain medication (motrin, advil, ibuprofen, tylenol, etc). If this does not relieve your discomfort, contact your doctor's office for a prescription strength pain medication. It is okay to wear a sanitary pad until the discharge and spotting stops. RISKS Although problems seldom occur with colposcopy, there can be some complications. You may feel faint during and shortly after the procedure as well as have some bleeding and vaginal discharge after the procedure. There is also a risk of infection after the procedure. These complications are rare and can be easily treated. You should contact you doctor is you have any of the following: - Heavy bleeding (more than your normal period) - Bleeding with clots - Severe abdominal pain - Fever (more than 100.4F) - Foul smelling vaginal discharge RESULTS If a biopsy was taken, we will have the results of your biopsy in 1-2 weeks. If you do not hear the results of your biopsy after 2 weeks, please contact your physicians office for the results. Depending on the biopsy results, your doctor will determine your follow up plan which may include further testing or treatments. STAYING HEALTHY After the procedure, you will need to see your doctor for follow up visits during the year. At these visits your doctor will check the health of your cervix with a pap smear. After three normal pap smears, your doctor will allow you to return to having exams once a year. If you have another abnormal pap smear, you may need closer follow up for longer or you may need additional treatment. By making a few lifestyle changes after the procedure, you can help protect the health of your cervix: - Have regular pelvic exams and pap smears as ordered by your doctor. - Stop smoking as smoking increases your risk of developing a cancer of the cervix - If you have more than one sexual partner, limit your number of partners and use condoms to reduce your risks of STDs. If you have any additional questions, please contact your doctor's office. Encounter Status:Closed by JOSE LANDRUM MD on 04/03/18 PROGRESS Observed: 04/03/2018 Status: COMPLETED Source: [place] 9:31 AM [facility] REPOSITORY O ID: [id number] Author: Jose Landrum Service: (none) Author Type: Physician Type: Progress Notes Filed: 04/03/2018 11:37 AM Note Text: Natasha Blake is a 37 year old female who presents today for a colposcopy. Her last pap smear was High risk HPV with normal pap from March 2018. Patient has a history of abnormal pap: No. She has had prior treatment: none. test: negative UNIVERSAL PROTOCOL / SAFETY CHECKLIST Procedure to be performed: colposcopy with possible biopsy Sign in Communication: Completed Time Out: Team Confirms the Correct Patient, Correct Procedure, Correct Site and Site Marking, Correct Position (if applicable), Prep and Dry Time (if applicable). Time: 10:35 Affirmation of Time Out: YES Sign Out Discussion: Completed PROCEDURE: EXTERNAL GENITALIA: Normal in appearance without lesions VAGINA: Normal in appearance without lesions CERVIX: Speculum placed in vagina and excellent visualization of cervix achieved. Cervix swabbed x 3 with 3% acetic acid solution. Cervix grossly normal. Squamocolumnar junction visualized. acetowhite changes noted 1,4,7, AND 11 o'clock. BIOPSY: Done at 1:00, 4:00, 7:00 and 11:00 ECC: done HEMOSTASIS: Obtained with Monsel's solution, silver nitrate and pressure Procedure Summary: Patient tolerated procedure well and colposcopy was adequate. ASSESSMENT: HPV effect PLAN: Specimens labeled and sent to Pathology. Will notify patient of results in 1-2 weeks. Post-procedure instructions reviewed and written material given to the patient. 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 [[id number]] Primary Visit Diagnosis:Abnormal uterine bleeding (AUB) [N93.9] Prescriptions as of 04/03/2018 Sig: FERROUS SULFATE 325 MG (65 MG* Take 1 tablet by mouth twice * CETIRIZINE 10 MG TABLET Take 1 tablet by mouth once d* ALBUTEROL SULFATE HFA 90 MCG/* Inhale 2 Puffs as instructed * Problem List As Of Date 04/03/2018 Noted Resolved Iron deficiency anemia [D50.9] INVALID FOR* Encounter Status:Closed by KARINA CHADWICK MD on 04/03/18 CYTOLOGY Observed: 03/26/2018 Status: C Source: [place] 2:31 PM [facility] REPOSITORY ADDITIONAL PROCEDURES PRESENT Specimen originated from [facility] Specimen #: [id number] Submitting Physician: KARINA GOFF MD SPECIMEN SUBMITTED A: CERVICAL, SCREENING, FLUID FINAL DIAGNOSIS A. CERVICAL, SCREENING, FLUID Satisfactory for interpretation. Negative for intraepithelial lesion or malignancy. This specimen has been analyzed by the ThinPrep Imaging System, an automated imaging and review system, which assists the laboratory in evaluating cells on ThinPrep Pap tests. Following automated imaging, selected pritchard from every slide are reviewed by a bench loom weaver. ISATU Roldan(ASCP) (Electronic Signature) ADDITIONAL PROCEDURE(S) HUMAN PAPILLOMA VIRUS Date Ordered: 03/28/2018 Date Reported: 03/29/2018 Procedure Results and Interpretation Positive for HPV DNA high risk type 16 by PCR(*) Negative for HPV DNA high risk type 18 by PCR. Negative for HPV DNA high risk types: 31,33,35,39,45,51,52,56,58,59,66,68 by PCR. This test was developed and its performance characteristics determined by [facility] [place] ([facility]). It has not been cleared or approved by the FDA. [facility] is regulated under CLIA as qualified to perform high-complexity testing. This test is used for clinical purposes. It should not be regarded as investigational or for research. CLINICAL DATA ROUTINE EXAM, HPV Testing: Yes, automatic HPV patients over 30 Date of Last Menstrual Period: 03/07/2018 STAINS A: CERVICAL, SCREENING, FLUID THIN PREP FUR MACHINE OPERATOR Natasha Matson M.D., Taker Down Date of Report: 03/29/2018 Date of Procedure: 03/26/2018 Date of Receipt: 03/28/2018 Submitted by: KARINA GOFF MD Location: [facility] Diagnostic interpretation performed at [facility], [address] [place] [address]. The Pap Smear is a screening test for cervical cancer. False negative results occur with all screening tests, emphasizing the need for rescreening at recommended intervals, and clinical correlation. HPV W/GENOTYPE Collected: 03/26/2018 Status: F Source: [place] 2:31 PM [facility] REPOSITORY TYPE CODE TESTS RESULT OUT OF RANGE REFERENCE UNITS LAB HPVT16 Abnormal HPV HighRisk Positive for Alert Type 16 HPV DNA high risk type 16 by PCR LAB HPVT18 HPV HighRisk Negative for Type 18 HPV DNA high risk type 18 by PCR. LAB HPVHRO HPV HighRisk Negative for Other HPV DNA high risk types: 31,33,35,39,4 5,51,52,56,58 ,59,66,68 by PCR. Result Comment: This test was developed and its performance characteristics determined by [facility] [place] ([facility]). It has not been cleared or approved by the FDA. [facility] is regulated under CLIA as qualified to perform high-complexity testing. This test is used for clinical purposes. It should not be regarded as inv estigational or for research. Performed By: #### HPVHRR #### [place] [address] [place] [id number] CNOV Observed: 03/26/2018 Status: COMPLETED Source: [place] 1:45 PM [facility] REPOSITORY Office Visit (WOOB) NATASHA BLAKE ([id number]) 1980 F Date Time Provider Department 03/26/18 1:45 PM KARINA CHURCHILL During your visit today, we recorded the following information about you: Blood pressure Weight Last Period 116/ 90.7 kg 03/07/18 Karina Goff MD 03/26/2018 2:33 PM Signed Tool Maker Bench offered: Patient declines. Natasha Blake is a 37 year old female who presents for follow up from [facility] for Heavy bleeding. Reports was in ER on 03/09/18 went to ER b/c she felt fatigued and dizzy, blood work showed she was anemic- denies blood transfusion but did get IVF. Pt reports menses started on 03/07/18- for the last 5 years menses are heavy lasting 2 weeks long - 2 days heavy and then light for remainder. Pt reports only 1-2 weeks of no bleeding- menses are regular - pt states when she was younger she did use OCPs but stopped after 3 months. Pt reports has three children and bleeding had improved. Pt reports had BTL and does have h/o fibroids but never had anything to confirm this. Denies any pain or bleeding with sex. Pt reports is taking Iron supplement. Pt reports no h/o bleeding disorder but states ?? Niece with VWD and possible grandmother with clotting disorder. PAST MEDICAL HISTORY Diagnosis Date - VILLA (headache) No past surgical history on file. No family history on file. Social History Marital status: Single Spouse name: Years of education: Number of children: Social History Main Topics Smoking status: Never Smoker Smokeless tobacco: Never Used Current Outpatient Prescriptions: albuterol HFA (VENTOLIN HFA) 90 mcg/actuation inhaler Inhale 2 Puffs as instructed every 4 hours as needed for Wheezing/Shortness of Breath. cetirizine (ZYRTEC) 10 mg tablet Take 1 tablet by mouth once daily as needed. ferrous sulfate 325 mg (65 mg iron) EC tablet Take 1 tablet by mouth twice daily. (Patient not taking: Reported on 03/26/2018 ) triamcinolone (KENALOG) 0.025 % cream Apply 1 application to affected area twice daily. (Patient not taking: Reported on 03/26/2018 ) ferrous sulfate 325 mg (65 mg iron) tablet Take 1 tablet by mouth twice daily with meals. (Patient not taking: Reported on 03/26/2018 ) No current facility-administered medications for this visit. Allergies As of Date: 03/26/2018 Allergen Noted Reaction SEASONAL ALLERGIES 06/09/2017 Other: See Comments Fully Assessed 03/26/2018 REVIEW OF SYSTEMS Abdomen: No abdominal pain, nausea, vomiting, diarrhea, or constipation. Bladder: no dysuria .. Expanded ROS: GENERAL: No weight loss, malaise or fevers GI: No nausea, vomiting, or diarrhea and Negative for abdominal discomfort, blood in stools or black stools, change in bowel habit, heart burn, nausea, vomiting- some gas pain Allergies and current medication updated:Yes EXAM: Wt 200 lb (90.7kg) LMP 03/07/2018 GENERAL: pleasant, female in no apparent distress HEENT: Normocephalic and atraumatic NECK: Supple and full range of motion DERMATOLOGY: Normal, without lesions and non-hirsute ABDOMEN: soft, non-tender and no masses PELVIC: external genitalia normal, normal Bartholin's glands, urethra, [place]'s glands, no vulvar lesions, no cervical lesions, good vaginal support, physiologic discharge present, normal appearing perineal body and perianal region BIMANUAL: uterus normal size, shape and consistency, uterus top normal size, no adnexal masses and non-tender NEURO: alert and oriented x3,exam grossly non-focal EXTREMITIES: normal ASSESSMENT AND PLAN: Encounter Diagnosis ICD-10-CM 1. Abnormal uterine bleeding (AUB) N93.9 PELVIC US WHI 2. Iron deficiency anemia due to chronic blood loss D50.0 PELVIC US WHI 3. Encounter for screening for malignant neoplasm of cervix Z12.4 PAP FLUID CERVICAL SCREENING 4. Special screening examination for human papillomavirus (HPV) Z11.51 PAP FLUID CERVICAL SCREENING 5. Iron ordered 6. Recommend EMB if desires Ablation 7. Will call patient with Ultrasound results - pamphlets given on mgmt options 8. Causes of AUB reviewed- TSh recently checked 9. [facility] labs reviewed Hg 8.7/29.8 Karina Goff MD Referring Provider: SELF [[id number]] Allergies As of Date: 03/26/2018 Noted Allergy Reaction SEASONAL ALLERGIES 06/09/2017 14 - Other: See Comments Comments: Itchy, watery eyes, sneezing Date Reviewed: 03/26/2018 Reviewed by: Stefanie Gutierres Ma - Fully Assessed Reason for Visit: ED Follow-up [821] Primary Visit Diagnosis:Abnormal uterine bleeding (AUB) [N93.9] Other Visit Diagnoses:Iron deficiency anemia due to chronic blood loss [D50.0] Encounter for screening for malignant neoplasm of cervix [Z12.4] Special screening examination for human papillomavirus (HPV) [Z11.51] Order(s):PELVIC US WHI [[id number]] Order #: [id number]: 1 PAP FLUID CERVICAL SCREENING [[id number]] Order #: [id number] ferrous sulfate 325 mg (65 mg iron) tabletTake 1 tablet by mouth twice daily.Disp: 60 tabletRfl: 3 Prescriptions as of 03/26/2018 Sig: ALBUTEROL SULFATE HFA 90 MCG/* Inhale 2 Puffs as instructed * FERROUS SULFATE 325 MG (65 MG* Take 1 tablet by mouth twice * CETIRIZINE 10 MG TABLET Take 1 tablet by mouth once d* Problem List As Of Date 03/26/2018 Noted Resolved Iron deficiency anemia [D50.9] INVALID FOR* Prescriptions ordered this encounter Disp Refills Start End FERROUS SULFATE 325 MG (65 MG IRON) * 60 t* 3 03/26/2018 Route: ORAL Sig: Take 1 tablet by mouth twice daily. Medications Discontinued During This Encounter ferrous sulfate 325 mg (65 mg iron) * 60 t* 2 10/06/2017 03/26/2018 Cmt: Brand name - smaller tablets. Route: ORAL Sig: Take 1 tablet by mouth twice daily. Patient not taking: Reported on 03/26/2018 Disc: Reason for discontinue is not on file. ferrous sulfate 325 mg (65 mg iron) * 60 t* 1 07/10/2017 03/26/2018 Route: ORAL Sig: Take 1 tablet by mouth twice daily with meals. Patient not taking: Reported on 03/26/2018 Disc: Reason for discontinue is not on file. triamcinolone (KENALOG) 0.025 % cream 30 g 1 10/06/2017 03/26/2018 Route: TOPICAL Sig: Apply 1 application to affected area twice daily. Patient not taking: Reported on 03/26/2018 Disc: Reason for discontinue is not on file. Encounter Status:Closed by KARINA CHADWICK MD on 03/26/18 PROGRESS Observed: 03/26/2018 Status: COMPLETED Source: [place] 1:33 PM [facility] REPOSITORY O ID: [id number] Author: Karina Chadwick Service: (none) Author Type: Physician Type: Progress Notes Filed: 03/26/2018 2:33 PM Note Text: Tool Maker Bench offered: Patient declines. Natasha Blake is a 37 year old female who presents for follow up from [facility] for Heavy bleeding. Reports was in ER on 03/09/18 went to ER b/c she felt fatigued and dizzy, blood work showed she was anemic- denies blood transfusion but did get IVF. Pt reports menses started on 03/07/18- for the last 5 years menses are heavy lasting 2 weeks long - 2 days heavy and then light for remainder. Pt reports only 1-2 weeks of no bleeding- menses are regular - pt states when she was younger she did use OCPs but stopped after 3 months. Pt reports has three children and bleeding had improved. Pt reports had BTL and does have h/o fibroids but never had anything to confirm this. Denies any pain or bleeding with sex. Pt reports is taking Iron supplement. Pt reports no h/o bleeding disorder but states ?? Niece with VWD and possible grandmother with clotting disorder. PAST MEDICAL HISTORY Diagnosis Date - VILLA (headache) No past surgical history on file. No family history on file. Social History Marital status: Single Spouse name: Years of education: Number of children: Social History Main Topics Smoking status: Never Smoker Smokeless tobacco: Never Used Current Outpatient Prescriptions: albuterol HFA (VENTOLIN HFA) 90 mcg/actuation inhaler Inhale 2 Puffs as instructed every 4 hours as needed for Wheezing/Shortness of Breath. cetirizine (ZYRTEC) 10 mg tablet Take 1 tablet by mouth once daily as needed. ferrous sulfate 325 mg (65 mg iron) EC tablet Take 1 tablet by mouth twice daily. (Patient not taking: Reported on 03/26/2018 ) triamcinolone (KENALOG) 0.025 % cream Apply 1 application to affected area twice daily. (Patient not taking: Reported on 03/26/2018 ) ferrous sulfate 325 mg (65 mg iron) tablet Take 1 tablet by mouth twice daily with meals. (Patient not taking: Reported on 03/26/2018 ) No current facility-administered medications for this visit. Allergies As of Date: 03/26/2018 Allergen Noted Reaction SEASONAL ALLERGIES 06/09/2017 Other: See Comments Fully Assessed 03/26/2018 REVIEW OF SYSTEMS Abdomen: No abdominal pain, nausea, vomiting, diarrhea, or constipation. Bladder: no dysuria .. Expanded ROS: GENERAL: No weight loss, malaise or fevers GI: No nausea, vomiting, or diarrhea and Negative for abdominal discomfort, blood in stools or black stools, change in bowel habit, heart burn, nausea, vomiting- some gas pain Allergies and current medication updated:Yes EXAM: Wt 200 lb (90.7kg) LMP 03/07/2018 GENERAL: pleasant, female in no apparent distress HEENT: Normocephalic and atraumatic NECK: Supple and full range of motion DERMATOLOGY: Normal, without lesions and non-hirsute ABDOMEN: soft, non-tender and no masses PELVIC: external genitalia normal, normal Bartholin's glands, urethra, [place]'s glands, no vulvar lesions, no cervical lesions, good vaginal support, physiologic discharge present, normal appearing perineal body and perianal region BIMANUAL: uterus normal size, shape and consistency, uterus top normal size, no adnexal masses and non-tender NEURO: alert and oriented x3,exam grossly non-focal EXTREMITIES: normal ASSESSMENT AND PLAN: Encounter Diagnosis ICD-10-CM 1. Abnormal uterine bleeding (AUB) N93.9 PELVIC US WHI 2. Iron deficiency anemia due to chronic blood loss D50.0 PELVIC US WHI 3. Encounter for screening for malignant neoplasm of cervix Z12.4 PAP FLUID CERVICAL SCREENING 4. Special screening examination for human papillomavirus (HPV) Z11.51 PAP FLUID CERVICAL SCREENING 5. Iron ordered 6. Recommend EMB if desires Ablation 7. Will call patient with Ultrasound results - pamphlets given on mgmt options 8. Causes of AUB reviewed- TSh recently checked 9. [facility] labs reviewed Hg 8.7/29.8 Karina Neyhart-Chadwick, MD 12 LEAD ELECTROCARDIOGRAM Observed: 03/14/2018 Status: F Source: [place] 2:40 PM [facility] Cardiovascular Services [address] [place] [address] 12 Lead EKG 03/08/18 1530 MR#: [id number] Acct: [id number] Name: NATASHA BLAKE Rep #: [id number] : 1980 37 From: Marcos Wagner MD Attending Dr: Status: DEP ER Ordering Dr: Belen Ruth MD Date: 03/08/18 Location: ED Sex: F C Admitted: Test Reason : VAG BLEED Blood Pressure : / mmHG Vent. Rate : 064 BPM Atrial Rate : 064 BPM P-R Int : 134 ms QRS Dur : 078 ms QT Int : 374 ms P-R-T Axes : 017 030 012 degrees QTc Int : 385 ms Normal sinus rhythm Normal ECG Confirmed by MARCOS WAGNER ([id number]), editorial intern KENZIE PYLE ([id number]) on 03/14/2018 2:40:07 PM Referred By: TAYLOR Confirmed By:MARCOS WAGNER 03/14/18 1440 Date Marcos Wagner MD CC: Belen Ruth MD; Ean León MD Signed EMERGENCY DEPARTMENT Observed: 03/08/2018 Status: F Source: [place] SUMMARY 4:36 PM [facility] Medical Records Department [address] [place] [address] Emergency Department Summary 03/08/18 1529 MR#: [id number] Acct: [id number] Name: NATASHA BLAKE Rep #: [id number] : 1980 37 From: Belen Ruth MD PCP: Ean León MD Status: REG ER - ER Visit Summary Date of Service: 03/08/18 Chief Complaint: Vaginal bleeding History of Present Illness: The patient is a 37 F presenting with heavy vaginal bleeding. She states she started her period yesterday. She has not had a period for the past 2 months. She states she was recently on antibiotics for UTI and recently treated for yeast infection. She finished these treatments. She states while at work today she had episodes of dizziness requiring her to sit down. She had no syncope. She denies abdominal pain or cramping. Denies possibility of . She has history of heavy periods in the past. She is not on blood thinners. She has a history iron deficiency anemia and has been out of her iron supplements. Physical Examination: Vitals are stable. Patient is afebrile. Alert no acute distress. HEENT exam is unremarkable. Neck is supple. Lungs are clear and equal bilaterally. Heart is regular rate and rhythm. Abdomen is soft nontender nondistended. No rebound or guarding. : Small amount of blood in the vaginal vault. This is cleared with cotton tip swab. There is no active bleeding. No cervical motion tenderness. No adnexal tenderness. Extremities are unremarkable. Skin is warm and dry. Remainder of exam is unremarkable. Emergency Department Course and Treatment: Patient is given IV fluids. With orthostatic vitals her blood pressure went from 125 to 109 systolic and her heart rate went from 71 to 81 with standing. She is improved following fluids. CBC shows a hemoglobin of 8.7, MCV 65.5. Chemistries unremarkable. Urinalysis unremarkable. HCG negative. Patient is given prescription for iron sulfate. Discussed with Dr. Chadwick and patient will follow-up in her office. She is advised to return to the ED for any worsening complaints. Disposition: Discharge home Impression: Vaginal bleeding, iron deficiency anemia This note was generated with [employer] dictation software. It may contain incorrect words, spelling, and punctuation that were not noted in review of the chart prior to signing ED Disposition - Plan for ED Patient: Chief Complaint: Vag Bleeding Instructions: ED Bleed Irregular Vaginal Prescriptions: Ferrous Sulfate 325 mg PO BID #60 tablet Referrals: Karina Goff MD [STAFF PHYSICIAN] - Ean León MD [Primary Care Provider] - What to do if you have Problems For any increased pain, shortness of breath, bleeding, nausea or vomiting, chest pain, or any unexpected problems, contact your Primary Care Provider. Call [facility] ([phone]) or report to the closest Emergency Room. Call 911 if necessary. 03/08/18 8574 <Electronically signed by Belen Ruth MD> Date Belen Ruth MD Cosigner Signature (If Indicated): Date CC: Ean León MD DISCHARGE INSTRUCTION Observed: 03/08/2018 Status: F Source: [place] 4:30 PM [facility] [place] [place] REPOSITORY [facility] Medical Records Department [address] [place] [address] Discharge Instruction 03/08/188 MR#: [id number] Acct: [id number] Name: NATASHA BLAKE Rep #: [id number] : 1980 37 From: Belen Ruth MD PCP: Ean León MD Status: REG ER ED Disposition - Plan for ED Patient: Chief Complaint: Vag Bleeding Instructions: ED Bleed Irregular Vaginal Prescriptions: Ferrous Sulfate 325 mg PO BID #60 tablet Referrals: Ean León MD [Primary Care Provider] - Karina Goff MD [STAFF PHYSICIAN] - What to do if you have Problems For any increased pain, shortness of breath, bleeding, nausea or vomiting, chest pain, or any unexpected problems, contact your Primary Care Provider. Call [facility] ([phone]) or report to the closest Emergency Room. Call 911 if necessary. 03/08/18 9580 <Electronically signed by Belen Ruth MD> Date Belen Ruth MD Cosigner Signature (If Indicated): Date CC: Ean León MD URINALYSIS, COMPLETE Collected: 03/08/2018 Status: F Source: [place] 3:45 PM [facility] [place] [place] REPOSITORY Order Comment: How was Urine Obtained? THREE KNIFE TRIMMER TO SPECIFY TYPE CODE TESTS RESULT OUT OF RANGE REFERENCE UNITS LAB L400.3000 Yellow COLOR Normal Yellow LAB L400.3050 Clear Normal CLARITY Clear LAB L400.3200 Normal mg/dl Normal GLUCOSE, UR Normal LAB L400.3300 Negative mg/dL Normal BILIRUBIN URINE Negative LAB L400.3400 Negative mg/dl Normal KETONE UR Negative LAB L400.3465 1.002-1.030 Normal SP.GR. DIPSTX 1.010 LAB L400.3550 5.0 - 8.0 pH UR Normal 7.0 LAB L400.3600 Negative mg/dl PROT Normal DIPSTX Negative LAB L400.3700 Normal mg/dl Normal UROBILI Normal LAB L400.3750 Negative Normal NITRITE UR Negative LAB L400.3780 Negative /ul High OCCULT BLOOD-UR 250 LAB L400.3800 Negative /ul LEUK Normal ESTERASE Negative LAB L400.4050 0-5 /hpf WBC 0 Normal SEEN LAB L400.4100 0-5 /hpf 0 Normal RBC-UA SEEN LAB L400.4150 5-10 /hpf SQUAM 0 Normal EPI SEEN LAB L400.4300 None Seen /hpf 0 Normal BACTERIA SEEN LAB L400.4350 <or=2+ /hpf 0 Normal MUCUS, URINE SEEN Performed By: #### L400.0001 #### [facility] [address] [place], [address] BASIC METABOLIC Collected: 03/08/2018 Status: F Source: GING[place] PROFILE (BMP) 3:30 PM [facility] [place] [place] REPOSITORY TYPE CODE TESTS RESULT OUT OF RANGE REFERENCE UNITS LAB L501.0100 74-106 mg/dL Normal GLU 80 Result Comment: Please note revised GLUCOSE reference range effective 2017. LAB L501.1000 7-18 mg/dL Normal BUN 13 LAB L501.1100 0.55-1.02 mg/dL Normal CREAT,SERUM 0.70 Result Comment: The validity of the calculated GFR AND GFRAA in patients over 70 years has not been determined. Clinical correlation is essential. LAB L501.1110 >60 mL/min Normal EST GFR 98 Result Comment: Non- GFR Calc LAB L501.1115 >60 mL/min Normal EST GFR - AA 119 Result Comment: GFR Calc LAB L501.1255 ml/min Normal Estimated CRCL 104.93 LAB L501.1300 10-20 RATIO BUN/CRE Normal 18.5 LAB L501.2200 8.5-10 mg/dL .1 CA Normal 9.1 LAB L501.5300 136-14 mmol/L 5 NA Normal 139 LAB L501.5600 3.5-5. mmol/L 1 K Normal 3.8 LAB L501.5900 98-107 mmol/L High CL 108 LAB L501.6100 21.0-3 mmol/L 2.0 CO2 Normal 26.0 LAB L501.6200 5-15 GAP Normal 5 Performed By: #### L500.2500 #### [facility] [address] [place], [address] CBC W/DIFF, AUTOMATED Collected: 03/08/2018 Status: F Source: [place] 3:30 PM [facility] [place] [place] REPOSITORY TYPE CODE TESTS RESULT OUT OF RANGE REFERENCE UNITS LAB L100.1000 4.4-11.0 K/mm3 Normal WBC 4.5 LAB L100.1200 4.2-5.4 M/mm3 Normal RBC 4.55 LAB L100.1300 12.0-15.0 g/dl Low HGB 8.7 LAB L100.1400 37-47 % Low HCT 29.8 LAB L100.1500 81-99 fL Low MCV 65.5 LAB L100.1600 27.0-32.0 pg Low MCH 19.1 LAB L100.1700 32-36 g/gl Low MCHC 29.2 LAB L100.1810 11.6-14.6 % High RDW CV 17.0 LAB L100.1820 35.1-43.9 fl Normal RDW SD 40.3 LAB L100.1900 150-450 K/mm3 Normal PLT 305 LAB L100.2000 6.2-12.0 fl Normal MPV 9.3 LAB L100.2100 47-70 % Normal NEUT% 51.4 LAB L100.2200 19-41 % Normal LY% 36.6 LAB L100.2300 0-10 % Normal MONO% 8.0 LAB L100.2400 0-5 % Normal EO% 3.3 LAB L100.2500 0-1 % Normal BASO% 0.7 LAB L100.2550 0.0-0.9 % Normal IM GRAN % 0.000 Result Comment: IG% - Immature Granulocytes (promyelocytes, myelocytes and metamyelocytes) > 1% indicates that a LEFT SHIFT is Present. LAB L100.2620 2.0-7.7 X10 3/uL Absolute Neut Normal 2.3 LAB L100.2720 0.83-4.51 X10 3/ul Absolute Lymph Normal 1.64 LAB L100.5500 ADEQ PLT EST Normal ADEQUATE LAB L100.7300 ANISO Normal 2+ LAB L100.7600 HYPOCHROMASIA Normal 1+ LAB L100.7700 MICROCYTES Normal 4+ Performed By: #### L100.0100 #### [facility] [address] [place], [address] ,SERUM,HCG QUALI. Collected: Status: F Source: [place] 03/08/2018 3:30 PM [facility] [place] [place] REPOSITORY TYPE CODE TESTS RESULT OUT OF REFERENCE UNITS RANGE LAB L700.6700 =>Qualitative mIU/mL Normal HCG Qual < 1 triggr LAB L700.7000 0-9 Nonpreg Negative Normal HCGSQUAL NEGATIVE Performed By: #### L700.6800 #### [facility] [address] [place], [address] DISCHARGE INSTRUCTION Observed: 02/13/2018 Status: F Source: [place] 11:04 PM [facility] [place] [place] REPOSITORY [facility] Medical Records Department [address] [place] [address] Discharge Instruction 02/13/18 2234 MR#: [id number] Acct: [id number] Name: NATASHA BLAKE Rep #: [id number] : 1980 37 From: Ortiz Burkett MD [...] your Primary Care Provider. Call [facility] ([phone]) or report to the closest Emergency Room. Call 911 if necessary. 02/13/18 2304 <Electronically signed by Ortiz Burkett MD> Date Ortiz Burkett MD Cosigner Signature (If Indicated): Date CC: Ean León MD EMERGENCY DEPARTMENT Observed: 02/13/2018 Status: F Source: [place] SUMMARY 11:04 PM [facility] [place] [place] REPOSITORY [facility] Medical Records Department [address] [place] [address] Emergency Department Summary 02/13/182057 MR#: [id number] Acct: [id number] Name: NATASHA BLAKE Rep #: [id number] : 1980 37 From: Ortiz Burkett MD [...] acute pyelonephritis This note was generated with [employer] dictation software. It may contain incorrect words, [...] your Primary Care Provider. Call [facility] ([phone]) or report to the closest Emergency Room. Call 911 if necessary. 02/13/18 6304 <Electronically signed by Ortiz Burkett MD> Date Ortiz Burkett MD Cosigner Signature (If Indicated): Date CC: Ean León MD ,URINE Collected: 02/13/2018 Status: F Source: [place] 8:30 PM [facility] [place] [place] REPOSITORY Order Comment: Order Date: 02/13/18 TYPE CODE TESTS RESULT OUT OF REFERENCE UNITS RANGE LAB L400.8000 Negative Normal HCGUQUAL Negative Result Comment: Very dilute urine specimens, as indicated by a low specific gravity, may not contain associate sales representative levels of hCG. If is still suspected, a first morning urine specimen should be collected 48 hours later and tested. Performed By: #### L400.7600 #### [facility] [address] [place], [place], [address] URINALYSIS, COMPLETE Collected: 02/13/2018 Status: F Source: G[place] 8:30 PM [facility] [place] [place] REPOSITORY Order Comment: Order Date: 02/13/18 How was Urine Obtained? THREE KNIFE TRIMMER TO SPECIFY TYPE CODE TESTS RESULT OUT [...] Performed By: #### L400.0001 #### [facility] [address] [place], [address] Observed: 02/13/2018 Status: F Source: GINGER CULTURE, URINE 8:30 PM [facility] [place] [place] REPOSITORY Order Date: 02/13/18 Urine Culture Below infection level. Clinical correlation necessary, Possible skin contamination. ORGANISM 1: Streptococcus agalactiae (B) [place] Count 1000-10,000 ORGANISM 2: Mixed Gram Positive Organisms [place] Count 1000-10,000 Streptococcus agalactiae (B): REACTION Ampicillin $ <=0.25 S Inducable Clindamycin Resistan - Linezolid $$$$ <=2 S Vancomycin $ 0.5 S (NF) indicates non-formulary drug at [facility]. Approval by Infectious Disease Specialist required before non-formulary drugs may be ordered and/or dispensed. * CLSI guidelines does not recommend testing of cephalosporins. This interpretation is deduced from Beta-lactam/penicillin results. Performed By: #### M100.0650 #### [facility] [address] [place], [address] CNCO Observed: 01/05/2018 Status: COMPLETED Source: [place] 12:00 AM [facility] REPOSITORY Letter Text [address] [place], [place] [address] January 05, 2018 Natasha Blake [address] [place] [id number] [phone] RE: MISSED APPOINTMENT with Dr. León on Monday01/05/18 I am concerned that you missed your recent appointment and my office was not notified of the appointment being rescheduled. We request that you cancel 24 hours in advance.If cancellation is necessary after that,please call as soon as possible. As you know follow-up appointments are important so please call our Appointments Office at [phone] to reschedule. If there is anything we can do to assist you, please let us know. Sincerely, Dr. León's office CBC AND DIFFERENTIAL Collected: 10/06/2017 Status: F Source: [place] 3:35 PM [facility] REPOSITORY TYPE CODE TESTS RESULT OUT OF [...] k/uL Abs Lymph 1.62 LAB AMONO % In[place]% 10.6 LAB AAMONO <0.87 k/uL Abs Inyo 0.55 LAB AEOS % Eosin% 2.9 LAB AAEOS <0.46 k/uL Abs Eosin 0.15 LAB ABASO % Baso% 0.8 LAB AABASO <0.11 k/uL Abs Baso 0.04 LAB AUNRBC 0 /100 WBC NRBCs 0.0 LAB ABNRBC <0.01 k/uL Absolute nRBC <0.01 LAB DTYP DTYPE Auto Diff Performed By: #### CBCDIF, IRON, FERR #### [facility] [address] [place] [address] IRON AND TIBC Collected: 10/06/2017 Status: F Source: [place] 3:35 PM [facility] REPOSITORY TYPE CODE TESTS RESULT OUT OF REFERENCE UNITS RANGE LAB IRN 41-186 ug/dL Low Iron 15 LAB TIBC 232-386 ug/dL TIBC High 431 LAB SAT 15-57 % Low Transferrin Saturatn 3 Performed By: #### CBCDIF, IRON, FERR #### [facility] [address] [place] [address] FERRITIN Collected: 10/06/2017 Status: F Source: [place] 3:35 PM [facility] REPOSITORY TYPE CODE TESTS RESULT OUT OF REFERENCE UNITS RANGE LAB FERR 14.7-205.1 ng/mL Low Ferritin 14.0 Performed By: #### CBCDIF, IRON, FERR #### [facility] [address] [place], [place] [address] PROGRESS Observed: 10/06/2017 Status: COMPLETED Source: [place] 3:07 PM [facility] REPOSITORY HNO ID: [id number] Author: Ean León Service: (none) Author Type: [...] PM. CNOV Observed: 10/06/2017 Status: COMPLETED Source: [place] 3:00 PM [facility] REPOSITORY [facility] NATASHA BLAKE ([id number]) 1980 F Date Time Provider Department 10/06/17 3:00 PM EAN LEÓN During your visit today, we recorded the [...] 2 CBC + DIFF [SQCBCDIF] Order #: [id number] FUTURE IRON + TIBC [SQIRON] Order #: [id number] FUTURE FERRITIN BLD [SQFERR] Order #: [id number] FUTURE Prescriptions as of 10/06/2017 Sig: CETIRIZINE [...] AND DIFFERENTIAL Collected: 07/10/2017 Status: F Source: [place] 3:13 PM [facility] REPOSITORY TYPE CODE TESTS RESULT OUT OF [...] k/uL Abs Lymph 1.72 LAB AMONO % [place]% 10.3 LAB AAMONO <0.87 k/uL Abs [place] 0.61 LAB AEOS % Eosin% 3.0 LAB AAEOS <0.46 k/uL Abs Eosin 0.18 LAB ABASO % Baso% 0.7 LAB AABASO <0.11 k/uL Abs Baso 0.04 LAB AUNRBC 0 /100 WBC NRBCs 0.0 LAB ABNRBC <0.01 k/uL Absolute nRBC <0.01 LAB DTYP DTYPE Auto Diff Performed By: #### CBCDIF, IRON, FERR #### [facility] [address] [place] [id number] IRON AND TIBC Collected: 07/10/2017 Status: F Source: [place] 3:13 PM [facility] REPOSITORY TYPE CODE TESTS RESULT OUT OF REFERENCE UNITS RANGE LAB IRN 41-186 ug/dL Low Iron 21 LAB TIBC 232-386 ug/dL TIBC High 446 LAB SAT 15-57 % Low Transferrin Saturatn 5 Performed By: #### CBCDIF, IRON, FERR #### [facility] [address] [place], [place] [address] FERRITIN Collected: 07/10/2017 Status: F Source: [place] 3:13 PM [facility] REPOSITORY TYPE CODE TESTS RESULT OUT OF REFERENCE UNITS RANGE LAB FERR 14.7-205.1 ng/mL Low Ferritin 7.8 Performed By: #### CBCDIF, IRON, FERR #### [facility] [address] [place], [place] [address] CNOV Observed: 07/10/2017 Status: COMPLETED Source: [place] 2:40 PM [facility] REPOSITORY Office Visit ([facility]) NATASHA BLAKE ([id number]) 1980 F Date Time Provider Department 07/10/17 2:40 PM EAN LEÓN [facility] During your visit today, we recorded the following information about you: Pulse Respiration Blood pressure Weight 74/minute 16/minute 122/70 90.9 kg Ean León MD 07/10/2017 5:08 PM Signed Chief Complaint Patient presents with: F/U 1 month: labs and CT HPI Natashatom Blake is a 37 year old female [...] CT Follow up in 1 month Ean Lóen MD Referring Provider: EAN LEÓN [[id number]] Allergies As of Date: 07/10/2017 Noted Allergy Reaction SEASONAL ALLERGIES 06/09/2017 14 - Other: See Comments Comments: Itchy, watery eyes, sneezing Date Reviewed: 07/10/2017 Reviewed by: Linda Dunham Ma - Fully Assessed Reason for Visit: F/U 1 month [1175] Cmt: labs and CT Primary Visit Diagnosis:Iron [...] encounter CEFDINIR 300 MG CAPSULE >> Linda Dunham Ma 07/10/2017 2:24 PM >> DAVIN MCDONALDLINDA Son Jul 10, 2017 2:24 PM Received from: [...] 07/10/17 PROGRESS Observed: 07/10/2017 Status: COMPLETED Source: [place] 2:20 PM [facility] [place] REPOSITORY HNO ID: [id number] Author: Ean León Service: (none) Author Type: [...] MD CBC Collected: 06/09/2017 Status: F Source: [place] 10:26 AM [facility] REPOSITORY TYPE CODE TESTS RESULT OUT OF [...] By: #### CBC, CMP, IRON, TSH #### [facility] [address] [place], [place] [address] COMP METABOLIC PANEL Collected: 06/09/2017 Status: F Source: [place] 10:26 AM [facility] REPOSITORY TYPE CODE TESTS RESULT OUT OF REFERENCE UNITS RANGE LAB TP 6.3-8.0 g/dL Protein, Total 7.2 LAB ALB 3.9-4.9 g/dL Albumin 4.3 LAB CA 8.5-10.2 mg/dL Calcium, Total 10.0 LAB TBIL 0.2-1.3 mg/dL Bilirubin, Total 0.2 LAB ALKP 32-117 U/L Alkaline Phosphatase 69 LAB AST 13-35 U/L AST 22 LAB GLU 74-99 mg/dL Glucose 92 Result Comment: The [place] Diabetes Association (ADA) provides guidance for cutoff [...] Standards of Medical Care in Diabetes 2016, [place] Diabetes Association. Diabetes Care. 2016.39(Suppl 1). LAB [...] has been calibrated to be traceable to IDBiolase. An eGFR <60 mL/min/1.73m2 for >3 months is consistent with chronic kidney disease. Refer to KDOQI guidelines for clinical interpretation. In patients with unstable renal function, e.g. those with acute kidney injury, the eGFR may not accurately reflect actual GFR. Performed By: #### CBC, CMP, IRON, TSH #### [facility] [address] [place], [place] [address] IRON AND TIBC Collected: 06/09/2017 Status: F Source: [place] 10:26 AM [facility] REPOSITORY TYPE CODE TESTS RESULT OUT OF REFERENCE UNITS RANGE LAB IRN 41-186 ug/dL Low Iron 13 LAB TIBC 232-386 ug/dL TIBC High 472 LAB SAT 15-57 % Low Transferrin Saturatn 3 Performed By: #### CBC, CMP, IRON, TSH #### [facility] [address] [place], [place] [address] TSH Collected: 06/09/2017 Status: F Source: [place] 10:26 AM [facility] REPOSITORY TYPE CODE TESTS RESULT OUT OF [...] Clinical Practice Guideline. J Clin Endocrinol Metab, 2012:97:6883-6128. 2. Carlos COATS. Overview of thyroid disease in . UpToDate. 2016. Accessed on September 04, 2015. Performed By: #### CBC, CMP, IRON, TSH #### [facility] [address] [place], [place] [address] PROGRESS Observed: 06/09/2017 Status: COMPLETED Source: [place] 9:54 AM [facility] REPOSITORY HNO ID: [id number] Author: Ean León Service: (none) Author Type: [...] the past. Single; three children, works at [employer]. Past medical history, appointments, medications, allergies reviewed. [...] MD CNOV Observed: 06/09/2017 Status: COMPLETED Source: [place] 9:40 AM [facility] REPOSITORY Office Visit (FAMPWS) NATASHA BLAKE Idania ([id number]) 1980 F Date Time Provider Department 06/09/17 9:40 AM EAN LEÓN During your visit today, we recorded the following information about you: Pulse Respiration Blood pressure Weight 76/minute 14/minute 110/68 89.8 kg Last Period 05/29/17 Ean León MD 06/09/2017 10:35 AM Signed Chief Complaint Patient presents with: Headache: patient has been getting headaches, neck pain and vision changes for several months now. Increase in headaches. HPI Natasha Idania Blake is a 37 year old female [...] the past. Single; three children, works at [employer]. Past medical history, appointments, medications, allergies reviewed. [...] 0 COMP METABOLIC PANEL [SQCMP] Order #: [id number] FUTURE TSH BLD [SQTSH] Order #: [id number] FUTURE CBC [SQCBC] Order #: [id number] FUTURE IRON + TIBC [SQIRON] Order #: [id number] FUTURE CT BRAIN WO IVCON [[id number]] Order #: [id number] FUTURE Prescriptions as of 06/09/2017 Sig: ALBUTEROL [...] CODE NAME / CODE REACTION SEVERITY SOURCE 04/05/2018 Drug morphine/[id number] Other Unknown Ginger Allergy/416 45(RXNORM) Community 853068([facility] ED CT) Repository 06/09/2017 Environ/420 SEASONAL OTHER: SEE C [facility] 786255([facility] ALLERGIES [facility] [place] [facility]) Repository Drug/374391 morphine [id number] Alevism 003([facility] CT) System Repository Drug/890318 No Known Alevism 003([facility] Allergies [facility] CT) System Repository Drug/023095 predniSONE Alevism 003([facility] CT) System Repository Drug NO KNOWN [facility] Class/80233 ALLERGIES [place] 1003([facility] Repository CT) ENCOUNTERS ENCOUNTERS ADMIT/DISCHARGE ACCOUNT NUMBER ADMITTING ENCOUNTER LOCATION SOURCE CLASS 04/12/2018 [id number] Ambulatory [facility] [place] Repository 04/12/2018/04/13/19 [id number] Ambulatory [address] [place] Repository 04/10/2018/04/11/19 [id number] Ambulatory [address] [place] Repository 04/05/2018/04/05/19 [id number] Emergency [address] ding:ED Repository 04/03/2018/04/09/19 [id number] Ambulatory [address] [place] Repository 04/03/2018/04/04/19 [id number] Ambulatory [address] [place] Repository 03/26/2018/03/27/19 [id number] Ambulatory [address] [place] Repository 03/08/2018/03/08/20 [id number] Emergency [place] ding:ED Repository 02/13/2018/02/14/20 [id number] Emergency [place] ding:ED Repository 12/04/2017/12/05/19 [id number] Ambulatory [address] System :[facility] Repository 11/24/2017/11/25/19 [id number] Ambulatory [address] System :[facility] Repository 11/07/2017/11/08/19 [id number] Ambulatory [address] System :[facility] Repository 10/06/2017/10/07/19 [id number] Ambulatory [address] [place] Repository 10/06/2017/10/10/19 [id number] Ambulatory [address] Repository 07/10/2017/07/11/19 [id number] Ambulatory [address] Repository 07/10/2017/07/12/19 [id number] Ambulatory [address] [place] 06/09/2017/06/10/19 [id number] Ambulatory [address] Repository 06/09/2017/06/13/19 [id number] Ambulatory [address] Repository PAYERS PAYERS ENCOUNTER GUARANTOR PAYER SUBSCRIBER SOURCE 04/05/2018 NATASHA L Primary NATASHA L Ginger [id number] CAMP Insurance:CARESOURCEP FISHERDOB: [facility] Number: [id number] Hospital 29554Vhg: [phone]) [id number] Repository [phone] () Date:2018-04-05 [address]ATTN: [place] [address]IL: 04/05/2018 Secondary NOT GIVENUNK [place] Insurance:SELF PAY [facility] Number: Effective Repository Date:2018-04-05 03/08/2018 NATASHA L Primary NATASHA L [place] [id number] CAMP Insurance:CARESOURCEP FISHERDOB: [facility] Number: [id number] Hospital 13886Rwa: [phone]) [id number] Repository [phone] () Date:2018-03-08P [address]ATTN: [place] [address]LV: 03/08/2018 Secondary NOT GIVENUNK [place] Insurance:SELF PAY [facility] Number: Effective Repository Date:2018-03-08 02/13/2018 NATASHA L Primary NATASHA Emerson Ginger [id number] [address] Insurance:CARESOURCEP FISHERDOB: [facility] Number: [id number] Hospital 49322Tda: [phone]) [id number] Repository [phone] (HP) Date:2018-02-13[address]ATTN: [place] [address]AC: 02/13/2018 Secondary NOT GIVENUNK [place] Insurance:SELF PAY [facility] Number: Effective Repository Date:2018-02-13 12/04/2017 NATASHA L Primary NATASHA L Alevism FISHERDOB: Insurance:CARESOURCE FISHERDOB: [facility] [id number] [facility] Number: [id number] System [facility] Effective [address] [place], [place] Date:2017-11-24 [place] [address]Qzx: [id number] [phone]: Name:[id number] () [address] [place] [address] ()Tel: [phone]: [phone] 11/24/2017 NATASHA L Primary NATASHA L Alevism FISHERDOB: Insurance:CARESOURCE FISHERDOB: [facility] [id number] MCAIDPolicy Number: [id number] System [facility] Effective [address] [place], [place] Date:2017-11-07 [place] [address]Xzv: [id number] [address]Tel: Name:[id number] () [address] ()Tel: [phone]: ([phone] 11/07/2017 NATASHA L Primary NATASHA L Alevism FISHERDOB: Insurance:[facility] FISHERDOB: [facility] [id number] MCAIDPolicy Number: [id number] [address] Effective [address] [place], [place] Date:2017-10-17 [place] [address]Jae: [id number] [address]Aag: Name:[id number] () [address] [place] [address] ()Tel: [phone]: [phone]
== END 2018-04-05 20:15 | disposition home or self-care (01) ==
PROVIDERS: Emergency Provider Emergency Medicine; Family Provider Family Medicine; PCP Family Medicine
DX: N92.0 Excessive and frequent menstruation with regular cycle (principal); D50.9 Iron deficiency anemia, unspecified
CPT/HCPCS: 85025; 85610; 85730; 86850; 86900; 99283; A4216

== ENCOUNTER 2018-08-24 12:42 | Emergency (ER) | payer MEDICAID, SELFPAY ==
[2018-08-24 12:42] VITALS: BP 112/75; PULSE 115; RESP 20; TEMP 36.8; BMI 33.5
--- NOTE | 2018-08-24 13:32 | ED.DCSUM_ITS ---
- ER Visit Summary Date of Service: 08/24/18 Chief Complaint: Patient presents for heavy vaginal bleeding History of Present Illness: The patient is a 38 F who presents for heavy vaginal bleeding for the last 3 days. Patient states she had a menstrual period that lasted a month and then stopped for a week and a half. 3 days ago she began having very heavy bleeding and is soaking several pads a day. She is gone through 2 bags of pads in the last 2 days. She said she is passing clots the size of dinner plates. She was seen at an outside emergency department for the past 2 nights and was started on agestin, without any improvement in the bleeding. Patient denies any urinary symptoms but states yesterday she began having chest pain and is also having shortness of breath and dizziness with exertion now. She has a uterine fibroid that was noted on a pelvic exam at the outside hospital and had increased in size since a prior ultrasound. Physical Examination: Vital signs: afebrile, hemodynamically stable, no hypoxia on room air General: well nourished, well developed, in no distress Skin: warm, dry, no rash, no pallor HEENT: normocephalic and atraumatic; PERRL, EOMI, moist mucous membranes Cardiovascular: Tachycardic rate and rhythm without murmurs, no peripheral calixto ma, 2+ pulses all distal extremities Respiratory: No increased work of breathing, lungs are clear to auscultation bilaterally, no rales, rhonchi or wheezing Abdominal: Abdomen is soft, nontender with normoactive bowel sounds, no guarding or rebound, no masses : Normal external genitalia, speculum exam shows scant amount of old blood in the vaginal vault, no clots, no vaginal discharge, no cervical motion tenderness MSK: Moves all extremities, no deformities, normal strength Neuro: Awake and alert, oriented ?4. No facial droop, sensation and motor function intact and symmetric Test Results: Abnormal Lab Results 08/24/18 08/24/18 13:29 13:48 Hgb 9.3 L Hct 27.4 L Serum , Qual NEGATIVE Emergency Department Course and Treatment: performed and was negative. Patient's hemoglobin was 9.3, which is consistent with her prior labs in this emergency department. Pelvic ultrasound from the outside hospital was reviewed and showed no concerning acute findings. Patient's speculum exam showed no profound bleeding. Patient was discussed with Dr. Romero, who recommended patient take the Aygestin 3 times a day and follow-up on Monday with the hotel baggage handler office. Patient was given a prescription for additional Aygestin, as her prior prescription may run out. She was discharged home with return precautions and well-appearing in no distress. Treatment Plan: [] Disposition: [] Impression: Metrorrhagia This note was generated with [employer] dictation software. It may contain incorrect words, spelling, and punctuation that were not noted in review of the chart prior to signing ED Disposition - Plan for ED Patient: Disposition: Home or Assisted Living Instructions: ED Bleed Irregular Vaginal Prescriptions: Norethindrone [Aygestin] 5 mg PO TID 5 Days #20 tab Referrals: Edgar Lawton MD [Primary Care Provider] - Ade Romero [STAFF PHYSICIAN] - 2 Days Additional Instructions: Please continue the Aygestin 3 times daily over the weekend. Call Dr. Romero on Monday to follow-up. Make an appointment for next week for another evaluation. If at any point this weekend your symptoms worsen or you have any other concerns, you may call the on-call doctor or return to the emergency department. If you have any worsening of your condition or any new concerning symptoms, please return immediately to the emergency department for another evaluation.
[2018-08-24 13:41] VITALS: BP 96/70; PULSE 94; RESP 14; O2SAT 100
[2018-08-24 13:57] LABS: Hematocrit 27.4 % (37-47); Hemoglobin 9.3 g/dl (12.0-15.0)
[2018-08-24 14:27] LABS: Internal QC Validated? YES +Cl - CLEAR BKGD; Pregnancy, Serum, hCG Quali. NEGATIVE Negative
--- NOTE | 2018-08-24 14:39 | ED.RN ---
ultrasound disk provided to x-ray. upload into PAC system and report given to dr holden. amalia chase. [phone]
[2018-08-24 15:03] VITALS: BP 94/62; PULSE 78; RESP 16; O2SAT 96
[2018-08-24 16:33] VITALS: BP 104/64; PULSE 64; RESP 15; O2SAT 98
--- NOTE | 2018-08-24 16:33 | ED.RN ---
PT GIVEN WRITTEN AND VERBAL DISCHARGE INSTRUCTIONS AND HOME GOING INSTRUCTIONS AND HOME GOING PRESCRIPTIONS. PT VERBALIZES UNDERSTANDING AND DENIES ANY FURTHER QUESTIONS. EDUCATED TO RETURN TO ED FOR ANY NEW OR WORSENED SX. PT IV D/C AND COVERED WITH 2X2 GAUZE AND PAPER TAPE. AMBULATES OUT OF DEPT WITH FRIEND.
== END 2018-08-24 16:36 | disposition home or self-care (01) ==
PROVIDERS: Emergency Provider Emergency Medicine; Family Provider Family Medicine; PCP Family Medicine
DX: N92.1 Excessive and frequent menstruation with irregular cycle (principal)
CPT/HCPCS: 84703; 85014; 85018; 99282; A4216

== ENCOUNTER → 2018-09-21 | Outpatient (CLI) | payer MEDICAID, SELFPAY ==
[2018-08-24 12:42] VITALS: BMI 33.5
== END | disposition home or self-care (01) ==
LOC: LAB 10:38
PROVIDERS: Family Provider Family Medicine; PCP Family Medicine; Referring Provider Obstetrics & Gynecology; Visit Provider Obstetrics & Gynecology
DX: D50.9 Iron deficiency anemia, unspecified (principal)
CPT/HCPCS: 36415; 86850; 86900; 86920; 86922

== ENCOUNTER 2018-09-22 09:16 | Outpatient (CLI) | payer MEDICAID, SELFPAY ==
[2018-09-22] VITALS (8 sets, daily range): BP systolic 94–119; BP diastolic 44–65; PULSE 67–82; RESP 16–18; TEMP 36.8–36.9; O2SAT 98–100
== END 2018-09-22 15:00 | disposition home or self-care (01) ==
LOC: MEDOUTP 09:16 → ICU 09:20
PROVIDERS: Family Provider Family Medicine; PCP Family Medicine; Referring Provider Obstetrics & Gynecology; Visit Provider Obstetrics & Gynecology
DX: N93.9 Abnormal uterine and vaginal bleeding, unspecified (principal); D50.0 Iron deficiency anemia secondary to blood loss (chronic)
CPT/HCPCS: 36415; 36430; 86850; 86900; 86920; 86922; P9016

== ENCOUNTER 2018-09-27 09:10 | Day surgery (SDC) | payer MEDICAID, SELFPAY ==
--- NOTE | 2018-09-19 13:13 | HP.PCM_ITS ---
Problem List (1) Abnormal uterine bleeding (AUB) Status: Acute (2) Fibroid uterus Status: Acute (3) Iron deficiency anemia Status: Acute History and Physical Date of Admission: 09/27/18 Amber Torres Physician INSURANCE SALESPERSON H&P Signed Encounter Date: 09/19/2018 Expand All Collapse All Hide copied text Mehdi for details Natasha Blake is a 38 year old female who presents for follow-up menorrhagia, abnormal uterine bleeding, iron deficiency anemia, fibroid uterus. Patient has been on Aygestin to control the bleeding. Patient is not a candidate for uterine ablation due to endometrial fibroid which measures 5.4 cm distorting the endometrium. Patient has tried Depo-Provera however has significant mood changes and does not wish to stay on that. Patient declines Mirena. Patient has been taking daily Aygestin which is controlling the bleeding however is still bleeding on a daily basis. Patient has a history of IV iron for iron deficiency. Will check a CBC this week to make sure she does not need a preoperative blood transfusion. ? PAST?MEDICAL?HISTORY PAST MEDICAL HISTORY Diagnosis Date ? VILLA (headache) ? ? PAST?SURGICAL?HISTORY PAST SURGICAL HISTORY Procedure Laterality Date ? SECTION HX ? ? ? x 2 ? TUBAL LIGATION ? ? ? FAMILY?HISTORY FAMILY HISTORY Problem Relation Age of Onset ? Heart Attack Maternal Grandmother ? ? other (mesothlioma) Maternal Grandfather ? ? SOCIAL?HISTORY Social History Socioeconomic History Marital status: Single Spouse name: Not on file Number of children: Not on file Years of education: Not on file Highest education level: Not on file Social Needs Financial resource strain: Not on file Food insecurity - worry: Not on file Food insecurity - inability: Not on file Transportation needs - medical: Not on file Transportation needs - non-medical: Not on file Occupational History Not on file Tobacco Use Smoking status: Never Smoker Smokeless tobacco: Never Used Substance and Sexual Activity Alcohol use: Never Frequency: Never Drug use: Never Sexual activity: Yes Partners: Male control/protection: Tubal Ligation Other Topics Concerns: Not on file Social History Narrative Not on file ? CURRENT?MEDICATIONS ? Current Outpatient Medications: norethindrone (AYGESTIN) 5 mg tablet Take 1 tab TID until bleeding stops then 1 tab BID x 3 days then 1 tab daily until surgery busPIRone (BUSPAR) 5 mg tablet TAKE 1 TABLET BY MOUTH THREE TIMES DAILY Norethindrone, Contraceptive, 0.35 mg tablet Take 1 tablet by mouth once daily. ferrous sulfate 325 mg (65 mg iron) tablet Take 1 tablet by mouth twice daily. cetirizine (ZYRTEC) 10 mg tablet Take 1 tablet by mouth once daily as needed. albuterol HFA (VENTOLIN HFA) 90 mcg/actuation inhaler Inhale 2 Puffs as instructed every 4 hours as needed for Wheezing/Shortness of Breath. amoxicillin-clavulanic acid (AUGMENTIN) 875-125 mg per tablet TAKE 1 TABLET BY MOUTH TWICE DAILY UNTIL GONE FOR 10 DAYS ibuprofen (MOTRIN) 600 mg tablet Take 1 tablet by mouth every 6 hours as needed. FOR PAIN. oxyCODONE-acetaminophen (PERCOCET) 5-325 mg tablet Take 1 tablet by mouth every 6 hours as needed for Pain for up to 7 days. simethicone, chewable (MYLICON) 80 mg chewable tablet Take 1 tablet by mouth every 6 hours as needed. docusate sodium (COLACE) 100 mg capsule Take 1 capsule by mouth twice daily. norethindrone (AYGESTIN) 5 mg tablet Take 1 tablet by mouth as directed. One by mouth bid x 3 days, then daily. ? No current facility-administered medications for this visit. Allergies As of Date: 09/19/2018 Allergen Noted Reaction SEASONAL ALLERGIES 06/09/2017 Other: See Comments ? Fully Assessed 09/19/2018 ? ? REVIEW OF SYSTEMS Abdomen: No abdominal pain, nausea, vomiting, diarrhea, or constipation. Bladder: No dysuria, gross hematuria, urinary frequency, urinary urgency, or incontinence.. Expanded ROS: GENERAL: No weight loss, malaise or fevers Allergies and current medication updated:Yes ? EXAM: BP 110/72 Ht 5' 6.5 (1.69m) Wt 215 lb (97.5kg) BMI 34.19 kg/(m^2). ? GENERAL: pleasant, female in no apparent distress HEENT: Normocephalic and atraumatic NECK: Supple and full range of motion DERMATOLOGY: Normal and without lesions CARDIAC: regular rate and rhythm CHEST: Clear to auscultation Normal inspiratory effort ABDOMEN: soft, non-tender and no masses PELVIC: external genitalia normal, normal Bartholin's glands, urethra, Geneva's glands, no vulvar lesions, no cervical lesions, good vaginal support, physiologic discharge present, normal appearing perineal body and perianal region BIMANUAL: uterus normal size, shape and consistency, no adnexal masses and non- tender NEURO: alert and oriented x3,exam grossly non-focal EXTREMITIES: normal ? ASSESSMENT AND PLAN: Encounter Diagnosis ? ? ICD-10-CM ? 1. Post-op pain G89.18 oxyCODONE-acetaminophen (PERCOCET) 5-325 mg tablet ? 2. Pt has been counseled on risks/benefits and alternatives of surgery including but not limited to anesthesia, bleeding, infection, injury to pelvic structures including bowel, bladder, ureters and vessels. Pt wishes to proceed with surgery at this time. 3. Consent obtained today for total upper scopic hysterectomy, bilateral salpingectomy, cystoscopy. 4. Postoperative pain medications were given including Percocet, Motrin, Colace, Mylicon 5. ERAS protocol reviewed with the patient ? Amber Howard MD ? ?
[2018-09-25 11:27] LABS: Hematocrit 32.6 % (37-47); Mean Corp Hgb Conc 30.7 g/gl (32-36); Mean Corpuscular Hgb 24.1 pg (27.0-32.0); Mean Corpuscular Volume 78.6 fL (81-99); Mean Platelet Vol. 10.7 fl (6.2-12.0); Platelet Count 347 K/mm3 (150-450); RBC Distribution Width CV 17.2 % (11.6-14.6); RBC Distribution Width SD 48.2 fl (35.1-43.9); Red Blood Count 4.15 M/mm3 (4.2-5.4); White Blood Count 4.1 K/mm3 (4.4-11.0)
[2018-09-25 11:44] LABS: Scan Indicated on CBC? Y/N NO
[2018-09-25 11:51] LABS: Prothrombin Time (Protime)PT. 13.3 SECONDS (11.7-14.9)
[2018-09-25 11:52] LABS: Partial Thromboplast Time 29.6 Seconds (24.1-36.2)
[2018-09-27] VITALS (11 sets, daily range): BP systolic 111–124; BP diastolic 72–85; PULSE 64–90; RESP 16–18; TEMP 36.4–36.9; O2SAT 96–100; BMI 34.5; BMI 34.9
[2018-09-27 09:55] LABS: Internal QC Validated? YES +Cl - CLEAR BKGD; Pregnancy, Urine Negative Negative
[2018-09-27 10:06] LABS: Bedside Glucose 84 mg/dL (70-110)
[2018-09-27] MEDS: Phenazopyridine 95 MG Tablet 190 MG PO (10:08)
[2018-09-27] MEDS: Celecoxib 200 MG Capsule 400 MG PO (10:09)
[2018-09-27] MEDS: Enoxaparin 40 MG/0.4 ML Syringe SC (10:10)
[2018-09-27] MEDS: Gabapentin 600 MG Tablet PO (10:10)
[2018-09-27] MEDS: Scopolamine 1mg/72hr Patch 1 PATCH TRANSDERM. (10:11)
[2018-09-27] MEDS: Acetaminophen 500 MG Tablet 1000 MG PO ×2 (10:11→16:52)
[2018-09-27] MEDS: dexAMETHasone 10 MG/ML Vial 8 MG IV (10:14)
[2018-09-27] MEDS: Magnesium Sulfate 4gm/100mL 4 GM/100 ML IV.SOLN. IV (10:15)
[2018-09-27] MEDS: Lactated Ringers 1,000 ML 40 ML IV ×2 (10:15→14:54)
--- NOTE | 2018-09-27 11:25 | HYST_PTH ---
PATIENT: DISHA HEARN LOC: [facility] U#:[id number] AGE/SX: 38/F ROOM: RE09/27/[address]: Dr. Amber Howard, MDDOB: 1980 BED: DIS: 09/28/2018 SPEC #: [id number] RECD: 09/27/18 16:45 STATUS: JAY CHRISTINA #: [id number] MITCHEL: 09/27/18 11:[address]: Amber Howard DEPT: SURGICAL PATHOLOGY RECD BY: Jf Joy ENTERED: 09/28/18 11:39 SP TYPE: HYSTERECT OTHR DR: Dr. Edgar Lawton MD Tissues: Uterus, NOS Procedures: Surgery Specimen Level V HEADER OPERATION: Total hysterectomy, bilateral salpingectomy, cystoscopy PRE-OP DIAGNOSIS: Abnormal uterine bleeding, fibroid uterus, iron deficiency anemia TISSUE SUBMITTED: Uterus and bilateral fallopian tubes MICROSCOPIC DIAGNOSIS Uterus, hysterectomy: Cervix - minimal chronic inflammation. Endometrium - weakly proliferative to inactive endometrium. Myometrium - leiomyomas. Right and left fallopian tubes - no pathologic change. AM:ana maria 10/01/18 MICROSCOPIC DESCRIPTION Slides are reviewed. GROSS DESCRIPTION Received in fixative is one container labeled with the patient's name and designated uterus. The specimen consists of a partially opened uterus with attached cervix without ovaries, portion of attached left fallopian tube and detached right fallopian tube. The uterus with cervix measures 13 x 10 x 10 cm and weighs 347 gm. The ectocervix is unremarkable. The cervical os is round in contour. The endocervical canal measures 3.5 cm in length and is grossly unremarkable. The elongated endometrial cavity measures 7 x 3 cm. The endometrium is light vasquez, velvety and glistening and measures up to 0.2 cm. The myometrium measures 2.5 cm in average thickness and is distorted by thin, rubbery detached white nodules ranging in size from 1 to 6.3 cm. The smaller nodule is submucosal in location. The larger nodule is submucosal and intramural in location. Cut sections reveal soft, rubbery cut surfaces. The right and left fallopian tubes are similar in appearance averaging 4 cm in average length and 0.5 cm in diameter. The fimbriated ends have normal villous appearance. Flight Tower Dispatcher sections are submitted in 12 cassettes as follows: 1 - anterior cervix, 2 - posterior cervix, 3 - anterior uterine wall with myometrial mass, 4 - anterior uterine wall , 5 & 6 - posterior uterine wall, 7-10 - largest myometrial mass, 11 - right fallopian tube, 12 - left fallopian tube. / AM:ana maria 09/28/18 TC:1 CPT: 64393
[2018-09-27] MEDS: Cefazolin 2 GM in 0.9% Normal Saline 100 ML IV (11:52)
[2018-09-27] MEDS: Bupivacaine 0.5% PF 10 ML VIAL (14:00)
[2018-09-27] MEDS: Ketorolac 30 MG/ML Syringe IV (14:51)
--- NOTE | 2018-09-27 14:58 | PCM.OPRPT ---
Problem List (1) Abnormal uterine bleeding (AUB) Status: Acute (2) Fibroid uterus Status: Acute (3) Iron deficiency anemia Status: Acute Report of Operation Date of Procedure: 09/27/18 Pre-Operative Diagnosis: AUB, fibroid uterus, iron deficiency anemia Post-Operative Diagnosis: same Surgery/Procedure Performed:: TLH uterus >250g, Bilateral salpingectomy, Cystoscopy Description of Surgical Findings:: Enlarged fibroid uterus approximately 12 weeks size. Normal ovaries and tubes bilaterally. auto radiator specialist: Mindy Walker Type of Anesthesia:: General Special Medications: marcaine Specimen's removed: uterus, cervix, bilateral tubes Drains: calderon Estimated Blood Loss (mL): 300 Fluids Replaced: 1000cc Description of Procedure: Patient take to OR and prepped and draped in usual sterile fashion in dorsal lithotomy position with her arms tucked in a neurologically safe and neutral position. The uterus sounded to 12cm. The uterine manipulator was sutured into place at 12:00 position and calderon were placed. Attention was turned to the abdomen. All port sites were infiltrated with marcaine before the incisions were made. The anterior abdominal wall was tented up with towel clamps and using a direct entry approach a 5 mm supraumbilical port was placed. Intraperitoneal placement was confirmed with the laparoscope and the pneumoperitoneum was created. The patient was placed in Trendelenburg and 5 mm right and left lower quadrant ports were placed under direct visualization. Air seal rapid insufflator was used. The bowel was swept away. Ovaries appeared normal. The mesosalpinx starting at fimbriated end were grasped, clamped, sealed and transected with the Ligasure. The round ligaments were divided. The anterior peritoneum was dissected down to create the bladder flap with blunt dissection and the LigaSure. The uterine arteries were isolated, clamped, sealed and cut. There was some back bleeding from the uterus. Straight bites on uterine arteries performed to drop them off the cuff. The manipulator cup was used as guide to create colpotomy using monopolar tip of ligasure. once specimen was removed attention was turned to vaginal portion. The specimen was handed off. Bleeding was noted from the left lateral aspect [id number] suture placed to control bleeding. The posterior cuff was run with a 2-0 Vicryl in a running locked fashion. The cuff was closed with interrupted 0-vicryl figure of 8 sutures. Cystoscopy was performed bilateral ureters were visualized with good efflux. bladder was intact. calderon replaced and sponge stick placed in vagina. The pneumoperitoneum was recreated and the cuff and pedicles were hemostatic. Dav was placed over cuff and pedicles. The skin incisions were closed with skin glue and 3-0 monocryl . The vaginal sweep was completed by me. Grafts/Implants Used: none Grafts/Implants Used: none - Complications none - Admit VTE Documentation VTE Present on Admission: Yes VTE Mechan Device Prophylaxis: SCD's VTE Pharm Prophylaxis ordered?: Yes
[2018-09-27 15:51] LABS: Absolute Lymphocyte Count 0.37 X10^3/ul (0.83-4.51); Absolute Neutrophil Count 6.7 X10^3/uL (2.0-7.7); Basophil# 0.01 X10^3/uL; Basophil% 0.1 % (0-1); Eosinophil# 0.01 X10^3/uL; Eosinophils% 0.1 % (0-5); Hematocrit 31.3 % (37-47); Hemoglobin 9.4 g/dl (12.0-15.0); Lymphocyte # 0.37 X10^3/ul (4.0); Lymphocyte % 5.2 % (19-41); Mean Corpuscular Hgb 23.5 pg (27.0-32.0); Mean Corpuscular Volume 78.3 fL (81-99); Mean Platelet Vol. 9.5 fl (6.2-12.0); Monocyte# 0.04 X10^3/uL; Monocyte% 0.6 % (0-10); Neutrophil # 6.65 X10^3/uL (2.7-7.7); Neutrophil % 93.9 % (47-70); Platelet Count 298 K/mm3 (150-450); RBC Distribution Width CV 17.7 % (11.6-14.6); RBC Distribution Width SD 50.6 fl (35.1-43.9); White Blood Count 7.1 K/mm3 (4.4-11.0)
[2018-09-27 16:10] LABS: Differential Indicated SCAN CRITERIA MET; POSITIVE COUNT NO; POSITIVE DIFFERENTIAL YES; POSITIVE MORPHOLOGY NO
[2018-09-27] MEDS: Ferrous Sulfate 325 MG Tablet PO (16:53)
[2018-09-27 17:00] LABS: Anisocytosis 3+; Differential Comment SCANNED; Hypochromasia 1+; Microcytosis 1+; Platelet Estimate ADEQUATE (ADEQ); Poikilocytosis 1+
[2018-09-27 17:01] LABS: Ovalocyte RARE; Schistocytes RARE; Tear Drop Cell RARE
[2018-09-27] MEDS: oxyCODONE 5 MG Tablet PO (18:23)
[2018-09-27 18:38] LABS: Absolute Lymphocyte Count 0.36 X10^3/ul (0.83-4.51); Absolute Neutrophil Count 7.1 X10^3/uL (2.0-7.7); Basophil# 0.01 X10^3/uL; Basophil% 0.1 % (0-1); Hematocrit 31.9 % (37-47); Hemoglobin 9.8 g/dl (12.0-15.0); Lymphocyte # 0.36 X10^3/ul (4.0); Lymphocyte % 4.7 % (19-41); Mean Corp Hgb Conc 30.7 g/gl (32-36); Mean Platelet Vol. 9.6 fl (6.2-12.0); Monocyte# 0.07 X10^3/uL; Monocyte% 0.9 % (0-10); Neutrophil # 7.14 X10^3/uL (2.7-7.7); Neutrophil % 94.2 % (47-70); Platelet Count 313 K/mm3 (150-450); RBC Distribution Width CV 17.7 % (11.6-14.6); RBC Distribution Width SD 50.7 fl (35.1-43.9); Red Blood Count 4.09 M/mm3 (4.2-5.4); White Blood Count 7.6 K/mm3 (4.4-11.0)
[2018-09-27 18:40] LABS: Differential Indicated SCAN CRITERIA MET; POSITIVE COUNT NO; POSITIVE DIFFERENTIAL YES; POSITIVE MORPHOLOGY NO
[2018-09-27 19:42] LABS: Anisocytosis 1+; Differential Comment SCANNED; Hypochromasia 1+; Microcytosis 1+; Platelet Estimate ADEQUATE (ADEQ); Poikilocytosis 1+
[2018-09-27 19:43] LABS: Schistocytes RARE; Tear Drop Cell RARE
[2018-09-27] MEDS: Docusate Sodium 100 MG Capsule PO (22:10)
[2018-09-28] MEDS: 0.9% NaCl Peripheral Flush Adult/Peds IV ×2 (00:12→12:57)
[2018-09-28] MEDS: Ketorolac 30 MG/ML Syringe IV ×4 (00:13→18:27)
[2018-09-28 02:26] VITALS: BP 106/69; PULSE 60; RESP 16; TEMP 36.8; O2SAT 99
[2018-09-28 02:51] VITALS: PULSE 60
--- NOTE | 2018-09-28 07:13 | PCM.PN.OB ---
Subjective: pt seen at bedside, doing well. pt reports ambulating- on her long ambulation toward end she did feel a little dizzy. she denies CP, SOB, Palpitations. pt reports excellent pain control. minimal spotting from vagina. urinating well. denies flatus at this time but is eating without n/v. - Physical Exam General: Alert, Oriented x3 Abdomen: Soft, Non-Distended, - - incision sites dry and intact Extremities: No Calf Tenderness Vital Signs Temp Pulse Resp BP Pulse Ox 98.2 F 60 16 106/69 99 09/28/18 02:26 09/28/18 02:51 09/28/18 02:26 09/28/18 02:26 09/28/18 02:26 Oxygen Flow Rate (L/min) 6 Oxygen Delivery Method Room Air Weight: 98.004 kg Body Mass Index (BMI) 34.9 Intake and Output for Last 24 Hours 09/26/18 09/27/18 09/28/18 23:59 23:59 23:59 Intake Total 1450 / 2314 1938 / 1938 Output Total 150 / 1100 1425 / 1425 Balance 1300 / 1214 513 / 513 Laboratory Tests Past 24 Hrs 09/27/18 09/27/18 09/27/18 09:33 15:36 18:16 WBC 7.1 7.6 RBC 4.00 L 4.09 L Hgb 9.4 L 9.8 L Hct 31.3 L 31.9 L MCV 78.3 L 78.0 L MCH 23.5 L 24.0 L MCHC 30.0 L 30.7 L RDW 17.7 H 17.7 H RDW Differential 50.6 H 50.7 H Plt Count 298 313 MPV 9.5 9.6 Immature Gran % (Auto) 0.100 0.100 Neut % (Auto) 93.9 H 94.2 H Lymph % (Auto) 5.2 L 4.7 L [place] % (Auto) 0.6 0.9 Eos % (Auto) 0.1 0.0 Baso % (Auto) 0.1 0.1 Absolute Neuts (auto) 6.7 7.1 Absolute Lymphs (auto) 0.37 L 0.36 L Total Counted Not Reportable Not Reportable Differential Comment SCANNED SCANNED Platelet Estimate ADEQUATE ADEQUATE Hypochromasia 1+ 1+ Poikilocytosis 1+ 1+ Anisocytosis 3+ 1+ Microcytosis 1+ 1+ Tear Drop Cells RARE RARE Ovalocytes RARE Schistocytes RARE RARE Urine Test Negative POC Glucose 09/27/18 10:01 POC Glucose 84 Medical Necessity - Tobacco Use Smoking Status: Never smoker Tobacco Use: Non-smoker Assessment/Plan All Active Problems Abnormal uterine bleeding (AUB) (Acute) Fibroid uterus (Acute) Iron deficiency anemia (Acute) POD#1 s/p TLH, Bilateral salpingectomy, cystoscopy 1) follow up am labs- CBC stable yesterday. if remains symptomatic today when walking or Hg/HCT drops will consider transfusion. pt is chronic anemic- gave pre op transfusion 2u prbc due to hg 7. 2) Ambulation 3) anticipate dc home later today 4) pain mgmt 5) pt has all post op meds- will continue PO iron as well
--- NOTE | 2018-09-28 07:17 | PCM.DC.AHY ---
Discharge Diet: No Restrictions Discharge Activity: Return to Normal Activity, May Not Drive - while taking narcotic pain medications., May Shower May resume sexual activity in: 6-8 weeks Call your doctor if your incision/area has: Continuous Slow Oozing, Sudden Increased Bleeding, Increased Pain/ Swelling, Increased Redness, Foul Smelling Discharge Call your doctor if you observe: Fever of 101 or Higher, Inability to urinate, Inability to have a bowel movement, Using more than one pad per hour Allergies/Adverse Reactions: Allergies morphine Allergy (Verified 09/27/18 09:55) Other patient passed out Medications to take at Discharge Ferrous Sulfate 325 mg PO BID 09/22/18 Orders to be completed after discharge: Partial Thromboplast Time Time Frame: 09/27/18, Facility: [facility], Location: Laboratory Prothrombin Time w/INR Time Frame: 09/27/18, Facility: [facility], Location: Laboratory Primary Care Physician: Edgar Lawton MD [Primary Care Provider] - Test Results: Test results from this visit will be discussed in further detail at your follow-up appointment, if applicable.
[2018-09-28 07:55] LABS: Hematocrit 28.9 % (37-47); Hemoglobin 8.8 g/dl (12.0-15.0); Mean Corp Hgb Conc 30.4 g/gl (32-36); Mean Corpuscular Hgb 23.8 pg (27.0-32.0); Mean Corpuscular Volume 78.1 fL (81-99); Mean Platelet Vol. 10.5 fl (6.2-12.0); Platelet Count 372 K/mm3 (150-450); RBC Distribution Width CV 17.5 % (11.6-14.6); RBC Distribution Width SD 47.6 fl (35.1-43.9); White Blood Count 6.4 K/mm3 (4.4-11.0)
[2018-09-28 07:56] LABS: Scan Indicated on CBC? Y/N NO
[2018-09-28] MEDS: Acetaminophen 500 MG Tablet 1000 MG PO ×3 (08:00→18:27)
[2018-09-28] MEDS: Ferrous Sulfate 325 MG Tablet PO ×2 (08:00→18:27)
[2018-09-28] MEDS: Enoxaparin 40 MG/0.4 ML Syringe SC (08:00)
[2018-09-28] MEDS: Docusate Sodium 100 MG Capsule PO (08:00)
[2018-09-28] MEDS: Lactated Ringers 1,000 ML 70 ML IV (08:12)
[2018-09-28 08:14] VITALS: BP 108/72; PULSE 65; RESP 18; TEMP 36.7; O2SAT 100
[2018-09-28 10:29] VITALS: O2SAT 97
[2018-09-28 13:39] VITALS: BP 98/61; PULSE 65; RESP 18; TEMP 36.6; O2SAT 100
[2018-09-28 13:59] LABS: Absolute Lymphocyte Count 1.63 X10^3/ul (0.83-4.51); Absolute Neutrophil Count 3.3 X10^3/uL (2.0-7.7); Basophil# 0.01 X10^3/uL; Basophil% 0.2 % (0-1); Eosinophil# 0.04 X10^3/uL; Eosinophils% 0.7 % (0-5); Hematocrit 27.3 % (37-47); Hemoglobin 8.1 g/dl (12.0-15.0); Lymphocyte # 1.63 X10^3/ul (4.0); Lymphocyte % 29.2 % (19-41); Mean Corp Hgb Conc 29.7 g/gl (32-36); Mean Corpuscular Hgb 23.4 pg (27.0-32.0); Mean Corpuscular Volume 78.9 fL (81-99); Mean Platelet Vol. 9.5 fl (6.2-12.0); Monocyte# 0.58 X10^3/uL; Monocyte% 10.4 % (0-10); Neutrophil # 3.32 X10^3/uL (2.7-7.7); Neutrophil % 59.3 % (47-70); Platelet Count 300 K/mm3 (150-450); RBC Distribution Width CV 17.5 % (11.6-14.6); RBC Distribution Width SD 47.8 fl (35.1-43.9); Red Blood Count 3.46 M/mm3 (4.2-5.4); White Blood Count 5.6 K/mm3 (4.4-11.0)
[2018-09-28 14:02] LABS: POSITIVE COUNT NO; POSITIVE DIFFERENTIAL NO; POSITIVE MORPHOLOGY NO
[2018-09-28 19:45] VITALS: BP 106/67; PULSE 76; RESP 16; TEMP 36.5; O2SAT 99
== END 2018-09-28 19:50 | disposition home or self-care (01) ==
LOC: SDC 09:12 → AC 09:14 → MS2 14:12
PROVIDERS: Anesthesiology; Obstetrics & Gynecology; Family Provider Family Medicine; PCP Family Medicine; Referring Provider Obstetrics & Gynecology; Visit Provider Obstetrics & Gynecology
PROC: 0UT94ZZ Resection of Uterus, Percutaneous Endoscopic Approach (ICD-10-PCS; CPT 52000; principal; 2018-09-27 11:10)
DX: D25.9 Leiomyoma of uterus, unspecified (principal); N72 Inflammatory disease of cervix uteri; D50.9 Iron deficiency anemia, unspecified; F41.9 Anxiety disorder, unspecified; F32.9 Major depressive disorder, single episode, unspecified; J45.909 Unspecified asthma, uncomplicated; K21.9 Gastro-esophageal reflux disease without esophagitis; Z79.51 Long term (current) use of inhaled steroids; Z79.891 Long term (current) use of opiate analgesic; Z79.899 Other long term (current) drug therapy
CPT/HCPCS: 00840; 52000; 58573; 36415; 81025; 82962; 85025; 85027; 85610; 85730; 86850; 86900; 88307; J1756; J7120; A4216; J2405

== ENCOUNTER 2021-04-19 11:00 | Emergency (ER) | payer MEDICAID, SELFPAY ==
[2021-04-19 11:00] VITALS: BP 140/97; PULSE 60; RESP 16; TEMP 35.9; O2SAT 100; BMI 33.0
--- NOTE | 2021-04-19 11:10 | EX.ED.DYSGE1 ---
HPI History of Present Illness Chief Complaint: Flank Pain Informant: patient Narrative Narrative: 40-year-old female arriving to the emergency department with right lower abdominal pain. Patient states that 2 to 3 days ago she noticed a slight amount of dysuria at the end of her stream. Yesterday it felt better and today she notes pain that has developed right lower quadrant that starts to radiate towards her flank. She notes that she has had a hysterectomy but not oophorectomy. She notes some mild anorexia today. No fever or vomiting PFSH PFSH Medical History Asthma delivery delivered Home Medications ferrous sulfate 325 mg PO BID 09/22/18 [History Last Taken Unknown] nitrofurantoin monohyd/m-cryst [Macrobid] 100 mg PO Q12H 5 Days #10 cap 04/19/21 [Rx Last Taken Unknown] phenazopyridine [Pyridium] 200 mg PO TID PRN #6 tab 04/19/21 [Rx Last Taken Unknown] Allergy/AdvReac Type Severity Reaction Status Date / Time morphine Allergy Other Verified 04/19/21 11:02 Surgical History H/O: hysterectomy Social History (Updated 04/19/21 @ 11:[address] Marcos Koenig DO) Smoking Status: Never smoker substance use type: does not use ROS ROS ED Constitutional Constitutional ED: Denies chills, fever(s) or weight loss Eyes Eyes: Denies change in vision or diplopia ENT ENT ED: Denies ear pain, rhinorrhea or sore throat Cardiovascular Cardiovascular: Denies chest pain, orthopnea, palpitations or racing heartbeat Respiratory/Chest Respiratory/Chest: Denies cough, dyspnea or orthopnea Gastrointestinal Gastrointestinal: Reports abdominal pain and nausea; Denies diarrhea or vomiting Genitourinary Genitourinary ED: Reports dysuria; Denies hematuria or urinary frequency Musculoskeletal Musculoskeletal: Denies arthralgias or myalgias Integumentary Denies abscess or rash Neurologic Neurologic: Denies headache(s) or weakness Psychiatric Psychiatric: Denies anxiety, depression, suicidal ideation or suicidal thoughts Endocrine Endocrinology: Denies polydipsia, polyphagia or polyuria Allergic/Immunologic Allergic/Immunologic ED: Denies mouth swelling, tongue swelling or urticaria EXAM Physical Exam Const Vital Signs: 04/19/21 11:00 Temperature 96.7 F L Temperature Source Temporal Pulse Rate 60 Respiratory Rate 16 Blood Pressure 140/97 H Blood Pressure Mean 111 Pulse Ox 100 Oxygen Delivery Method Room Air Positive well nourished and well developed General Appearance ED: well developed HEENT Reports normocephalic, head/scalp atraumatic, TM's clear and moist mucous membranes Negative for trauma Tympanic Membrane ED: Yes TM's clear Eyes PERRL and EOMs intact bilaterally Neck no lymphadenopathy, supple and no JVD Resp normal respiratory effort and clear to auscultation bilaterally Cardio regular rate, regular rhythm and no murmurs GI Auscultation: normoactive bowel sounds Palpation: soft, tender RLQ and guarding; Negative for rebound tenderness present Back/Spine no CVA tenderness and normal ROM Extremity normal to inspection General Extremety ED: Negative for edema General Extremity: Negative for edema Neuro oriented x3 and CN's II-XII intact bilaterally Sensorium / Orientation: alert Motor Exam: strength 5/5 throughout Psych mental status grossly normal Mood & Affect: Negative for depressed or tearful Skin no rashes or lesions noted and no wounds MDM MDM MDM Narrative Medical decision making narrative: Basic blood work was obtained shows a white count of 5.7. CMP is normal. Urinalysis 10-25 white cells 1+ bacteria leukocyte Estrace positive. CT abdomen pelvis demonstrated changes of the bladder consistent with cystitis. There is also a ovarian cyst noted. Patient will be started on Macrobid as well as Pyridium. Instructions to follow-up return if worsening or concerns Lab Data Attestation: I reviewed the patient's lab results. Labs: Laboratory Results - last 24 hr 04/19/21 04/19/21 04/19/21 11:18 11:23 11:23 WBC 5.7 RBC 5.05 Hgb 14.6 Hct 44.2 MCV 87.5 MCH 28.9 MCHC 33.0 RDW Std Deviation 39.9 RDW Coeff of Diann 12.4 Plt Count 261 MPV 8.9 Immature Gran % (Auto) 0.400 Neut % (Auto) 59.6 Lymph % (Auto) 27.8 [place] % (Auto) 9.2 Eos % (Auto) 2.6 Baso % (Auto) 0.4 Absolute Neuts (auto) 3.4 Absolute Lymphs (auto) 1.58 Nucleated RBC % 0 Sodium 139 Potassium 3.9 Chloride 110 H Carbon Dioxide 25.0 Anion Gap 4 L BUN 13 Creatinine 0.72 Estim Creat Clear Calc 98.98 Est GFR (MDRD) Af Amer 115 Est GFR (MDRD) Non-Af 95 BUN/Creatinine Ratio 18.2 Glucose 83 Calcium 9.0 Total Bilirubin 0.30 AST 17 ALT 26 Alkaline Phosphatase 88 Total Protein 6.9 Albumin 3.3 Globulin 3.6 Albumin/Globulin Ratio 0.9 Urine Color Yellow Urine Clarity Clear Urine pH 7.0 Ur Specific [place] 1.015 Urine Protein 15 H Urine Glucose (UA) Normal Urine Ketones Negative Urine Occult Blood 10 H Urine Nitrite Negative Urine Bilirubin Negative Urine Urobilinogen Normal Ur Leukocyte Esterase 100 H Urine RBC 0-5 SEEN Urine WBC 10-25 SEEN Ur Squamous Epith Cells 0-5 SEEN Urine Bacteria 1+ Urine Mucus 0 SEEN Radiography Diagnostic Testing: Clinical Impression(s) from Imaging Studies Abdomen/Pelvis CT 04/19/21 12:02 IMPRESSION: Diffuse bladder wall thickening with increased markings in the surrounding peritoneal fat suggestive of cystitis. There is a 2.9 cm x 1.7 cm septated cyst in the right ovary. Electronically Signed: Angel Weaver MD at 12:33 EST , Discharge Plan Triage Chief Complaint: Flank Pain ED Provider: Marcos Koenig Dx/Rx/DC Orders Clinical Impression: Acute cystitis, Ovarian cyst Instructions: ED Ovarian Cyst, ED CYSTITIS Female Adult Prescriptions: New phenazopyridine [Pyridium] 200 mg tablet 200 mg PO TID PRN (Reason: pain) Qty: 6 RF: 0 nitrofurantoin monohyd/m-cryst [Macrobid] 100 mg capsule 100 mg PO Q12H 5 Days Qty: 10 RF: 0 No Action ferrous sulfate 325 MG tablet 325 mg PO BID RF: 0 Primary Care Provider: Edgar Lawton Referrals: Edgar Lawton MD [Primary Care Provider] - As Needed Disposition Disposition: Home, Self Care
[2021-04-19 11:31] LABS: Mucous, Urine 0 SEEN /hpf (<or=2+)
[2021-04-19 11:36] LABS: Absolute Lymphocyte Count 1.58 X10^3/uL (0.83-4.51); Absolute Neutrophil Count 3.4 X10^3/uL (2.0-7.7); Basophil# 0.02 X10^3/uL; Basophil% 0.4 % (0-1); Eosinophil# 0.15 X10^3/uL; Eosinophils% 2.6 % (0-5); Hematocrit 44.2 % (37-47); Hemoglobin 14.6 g/dL (12.0-15.0); Lymphocyte # 1.58 X10^3/ul (0.83-4.51); Lymphocyte % 27.8 % (19-41); Mean Corpuscular Hgb 28.9 pg (27.0-32.0); Mean Corpuscular Volume 87.5 fL (81-99); Mean Platelet Vol. 8.9 fl (6.2-12.0); Monocyte# 0.52 X10^3/uL; Monocyte% 9.2 % (0-10); NRBC Flagged by Analyzer 0 % (0-5); Neutrophil # 3.39 X10^3/uL (2.7-7.7); Neutrophil % 59.6 % (47-70); Platelet Count 261 K/mm3 (150-450); RBC Distribution Width CV 12.4 % (11.6-14.6); RBC Distribution Width SD 39.9 fl (35.1-43.9); Red Blood Count 5.05 M/mm3 (4.2-5.4); White Blood Count 5.7 K/mm3 (4.4-11.0)
[2021-04-19 11:37] LABS: Color, Urine Yellow (Yellow); Glucose, Dipstick Normal (Normal); Ketone-Dipstick Negative (Negative); Leukocyte Esterase-Dipstick 100 /ul (Negative); Nitrite-Dipstick Negative (Negative); Occult Blood-Urine 10 /ul (Negative); Protein-Dipstick 15 mg/dl (Negative); Specific Gravity, Urine 1.015 (1.002-1.030); Urine Bilirubin Dipstick Negative (Negative); Urine Clarity Clear (Clear); Urine Urobilinogen Normal (Normal)
[2021-04-19 11:42] LABS: Bacteria 1+ /hpf (None Seen); Red Blood Cells-Urine 0-5 SEEN /hpf (0-5); Squamous Epithelial Cells - UA 0-5 SEEN /hpf (5-10); White Blood Cells 10-25 SEEN /hpf (0-5)
[2021-04-19 11:49] LABS: ALB/GLOB Ratio 0.9 RATIO (0.9-2.4); AST(SGOT) 17 U/L (15-37); Alanine Aminotransfer ALT/SGPT 26 U/L (13-56); Albumin, Serum 3.3 g/dL (3.2-5.0); Alkaline Phosphatase 88 U/L (45-117); Anion Gap 4 (5-15); BUN 13 mg/dL (7-18); BUN/Creat Ratio 18.2 RATIO (10-20); Chloride 110 mmol/L (98-107); Creatinine, Serum 0.72 mg/dL (0.55-1.02); EST Glomerular Filtration Rate 95 mL/min (>60); Est Glom Filt Rate - Afr Amer 115 mL/min (>60); Estimated Creatinine Clearance 98.98 ml/min; Globulin 3.6 g/dL (2.2-4.2); Glucose 83 mg/dL (74-106); Potassium 3.9 mmol/L (3.5-5.1); Protein, Total 6.9 g/dL (6.4-8.2); Sodium Level 139 mmol/L (136-145)
--- NOTE | 2021-04-19 12:02 | CT_ITS ---
STUDY: CT ABDOMEN AND PELVIS WITH CONTRAST REASON FOR EXAM: Female, 40 years old. Right flank pain. RADIATION DOSAGE (If Supplied By Facility): CTDIvol = ( 16.64 ) mGy, DLP = ( 1097.54 ) mGycm TECHNIQUE: Transaxial images were obtained from the dome of the diaphragm to the symphysis pubis without oral contrast. IV 100mL Isovue-300 was administered. Sagittal and coronal images were reconstructed. Individualized dose optimization techniques were used for this CT. COMPARISON: None. FINDINGS: The visualized lung bases are unremarkable. The visualized portions of the heart are within normal limits. Normal liver. Normal gallbladder and extrahepatic biliary system. Normal spleen. Normal pancreas. Normal bilateral adrenal glands. Normal right kidney. Normal left kidney. There is a small hiatal hernia. Normal small intestine. Normal colon. There is non-visualization of the appendix. Normal abdominal aorta. Normal inferior vena cava. Normal retroperitoneum. Diffuse bladder wall thickening with evidence of increased markings in the surrounding fat. Cystitis should BE ruled out. There is absence of the uterus consistent with a prior hysterectomy. There is a 2.9 cm x 1.7 cm septated cyst in the right ovary. Normal abdominal wall. Mild degree of disc space narrowing and spondylosis at the L5-S1 CT/Abdomen/Pelvis W IV Cont ONLY IMPRESSION: Diffuse bladder wall thickening with increased markings in the surrounding peritoneal fat suggestive of cystitis. There is a 2.9 cm x 1.7 cm septated cyst in the right ovary. Electronically Signed: Angel Weaver MD at 12:33 EST ,
[2021-04-19 13:01] VITALS: BP 132/78; PULSE 72; RESP 18; TEMP 36.3; O2SAT 98
== END 2021-04-19 13:02 | disposition home or self-care (01) ==
PROVIDERS: Emergency Provider Emergency Medicine; PCP Family Medicine; Visit Provider Emergency Medicine
DX: N30.00 Acute cystitis without hematuria (principal); N83.201 Unspecified ovarian cyst, right side; J45.909 Unspecified asthma, uncomplicated
CPT/HCPCS: J2405; 74177; 80053; 81001; 85025; 96374; 96375; 99283; J7030; Q9967; A4216